=== PATIENT | male | born 1990 | race Caucasian/White ===

== ENCOUNTER 2018-05-14 13:35 | Emergency (ER) | payer BC, SELFPAY ==
[2018-05-14 13:36] VITALS: BP 148/95; PULSE 109; RESP 16; TEMP 36.3; O2SAT 99; BMI 36.1
--- NOTE | 2018-05-14 13:52 | CT_ITS ---
STUDY: CT ABDOMEN AND PELVIS WITHOUT CONTRAST REASON FOR EXAM: Male, 28 years old. Right lower quadrant pain with radiation into the right groin. RADIATION DOSAGE (If Supplied By Facility): CTDIvol = ( 18.41 ) mGy, DLP = ( 1099.22 ) mGycm TECHNIQUE: Transaxial images were obtained from the dome of the diaphragm to the symphysis pubis without oral contrast, and without intravenous contrast. Sagittal and coronal images were reconstructed. Individualized dose optimization techniques were used for this CT. COMPARISON: Comparison is made with prior examination dated July 01, 2014. FINDINGS: The visualized lung bases are unremarkable. The visualized portions of the heart are within normal limits. There is decreased attenuation of the liver consistent with steatosis. Normal gallbladder and extrahepatic biliary system. Normal spleen. Normal pancreas. Normal bilateral adrenal glands. Normal right kidney. Normal left kidney. There is a small hiatal hernia. The stomach is distended with fluid and residual food particles. Normal small intestine. Normal colon. The appendix is visualized and appears normal. Normal abdominal aorta. Normal inferior vena cava. Normal retroperitoneum. Normal urinary bladder. Normal abdominal wall. Normal osseous structures. CT/Abdomen/Pelvis without Cont IMPRESSION: Diffuse fatty infiltration of the liver. Electronically Signed: William Samson MD at 14:54 EST Tel [phone], Service support ,
[2018-05-14] MEDS: Morphine 4 MG/ML Syringe IV (14:08)
[2018-05-14] MEDS: 0.9% Normal Saline 1,000 ML 1000 ML IV (14:08)
[2018-05-14 14:20] LABS: Absolute Lymphocyte Count 2.01 X10^3/ul (0.83-4.51); Absolute Neutrophil Count 5.1 X10^3/uL (2.0-7.7); Basophil# 0.01 X10^3/uL; Basophil% 0.1 % (0-1); Eosinophils% 2.4 % (0-5); Hematocrit 48.4 % (40-54); Hemoglobin 16.7 g/dl (13.0-16.5); Lymphocyte # 2.01 X10^3/ul (4.0); Lymphocyte % 23.6 % (19-41); Mean Corp Hgb Conc 34.5 g/gl (32-36); Mean Corpuscular Hgb 27.6 pg (27.0-32.0); Mean Platelet Vol. 9.7 fl (6.2-12.0); Monocyte# 1.19 X10^3/uL; Neutrophil # 5.08 X10^3/uL (2.7-7.7); Neutrophil % 59.7 % (47-70); POSITIVE COUNT NO; POSITIVE DIFFERENTIAL NO; POSITIVE MORPHOLOGY NO; Platelet Count 285 K/mm3 (150-450); RBC Distribution Width CV 13.6 % (11.6-14.6); RBC Distribution Width SD 39.1 fl (35.1-43.9); Red Blood Count 6.05 M/mm3 (4.6-6.2); White Blood Count 8.5 K/mm3 (4.4-11.0)
[2018-05-14 14:35] LABS: Anion Gap 9 (5-15); BUN 12 mg/dL (7-18); BUN/Creat Ratio 9.4 RATIO (10-20); Chloride 105 mmol/L (98-107); Creatinine, Serum 1.27 mg/dL (0.70-1.30); EST Glomerular Filtration Rate 73 mL/min (>60); Est Glom Filt Rate - Afr Amer 88 mL/min (>60); Estimated Creatinine Clearance 108.22 ml/min; Glucose 118 mg/dL (74-106); Potassium 3.7 mmol/L (3.5-5.1); Sodium Level 138 mmol/L (136-145)
--- NOTE | 2018-05-14 14:53 | ED.VISSUMM ---
- ER Visit Summary Date of Service: 05/14/18 Chief Complaint: Right inguinal pain History of Present Illness: The patient is a 28 M who presents with right inguinal pain that has been getting worse over the past 5 days. Patient states he was lifting something and felt a pop. Patient is concerned over possible inguinal hernia. Patient describes the pain as aching and burning. Patient states the pain is worse with urination. Patient states the pain improves when he lays completely flat and still. Patient denies any nausea or vomiting. Patient states he did have a couple episodes of diarrhea initially but denies any diarrhea at the present time. Patient admits to some mild dysuria but denies any hematuria. Patient denies any fevers or chills Physical Examination: Vital signs are stable. Patient is afebrile. Patient is in no acute distress. Oral mucosa is pink moist. Neck is supple. Trachea is midline. No JVD noted. Heart was regular rate and rhythm. Lungs are clear and equal bilateral. There is good respiratory effort noted. Abdomen is soft. Bowel sounds are normal. There is some mild right lower abdominal tenderness and right inguinal tenderness. There is no hernia palpated. There is no rebound or guarding noted. Obturator sign is negative. There is no testicular tenderness or mass noted. The nerves II through XII are intact. There are no focal motor or sensory deficits noted. The remaining physical exam is within normal limits. Test Results: CBC, metabolic profile, urinalysis were obtained and were all within normal limits. CT scan of the flank shows fatty liver but no appendicitis, no hernia, and no kidney stones. Emergency Department Course and Treatment: Patient was given injection of Toradol here. Patient was instructed to follow-up with his primary care physician in 5-7 days. Patient was given a prescription for Naprosyn. Patient understood and was agreeable with the plan. All questions were answered. Disposition: Discharged home Impression: Abdominal pain This note was generated with [employer] dictation software. It may contain incorrect words, spelling, and punctuation that were not noted in review of the chart prior to signing ED Disposition - Plan for ED Patient: Disposition: Home or Assisted Living Chief Complaint: Abd Pain Diagnosis: Abdominal pain Instructions: ED Abdominal Pain Unkn Cause Prescriptions: Naproxen [Naprosyn] 500 mg PO BID PRN #20 tab Referrals: Care Physician,No Primary [Primary Care Provider] -
[2018-05-14 15:05] LABS: Bacteria 0 SEEN /hpf (None Seen); Mucous, Urine 0 SEEN /hpf (<or=2+); Red Blood Cells-Urine 0 SEEN /hpf (0-5); Squamous Epithelial Cells - UA 0 SEEN /hpf (0-5); White Blood Cells 0 SEEN /hpf (0-5)
[2018-05-14 15:10] LABS: Color, Urine Yellow (Yellow); Glucose, Dipstick Normal (Normal); Ketone-Dipstick Negative (Negative); Leukocyte Esterase-Dipstick Negative /ul (Negative); Nitrite-Dipstick Negative (Negative); Occult Blood-Urine Negative /ul (Negative); Protein-Dipstick Negative (Negative); Urine Bilirubin Dipstick Negative (Negative); Urine Clarity Clear (Clear); Urine Urobilinogen 1 mg/dl (Normal)
[2018-05-14] MEDS: Ketorolac 30 MG/ML Syringe IV (15:54)
[2018-05-14 16:17] VITALS: BP 150/95; PULSE 93; RESP 17; O2SAT 97
--- NOTE | 2018-05-14 16:18 | ED.RN ---
IV DC'ED, CATHETER INTACT, SMALL GAUZE DRESSING PLACED. DISCHARGE INSTRUCTIONS GIVEN TO AND REVIEWED WITH PATIENT, PATIENT DENIES QUESTIONS OR CONCERNS AND VOICES UNDERSTANDING OF DISCHARGE INSTRUCTIONS. PT AMBULATES OUT OF ROOM WITHOUT DIFFICULTY.
== END 2018-05-14 16:18 | disposition home or self-care (01) ==
PROVIDERS: Emergency Provider Emergency Medicine
DX: R10.31 Right lower quadrant pain (principal); R19.7 Diarrhea, unspecified; R30.0 Dysuria
CPT/HCPCS: 74176; 80048; 81001; 85025; 96361; 96374; 96375; 99283; J7030; A4216

== ENCOUNTER 2019-05-14 10:22 | Emergency (ER) | payer BC, SELFPAY ==
[2019-05-14 09:33] VITALS: BMI 35.9
[2019-05-14 10:23] VITALS: BP 135/91; PULSE 98; RESP 17; TEMP 36.6; O2SAT 98; BMI 35.5
--- NOTE | 2019-05-14 10:38 | CT_ITS ---
STUDY: CT BRAIN WITHOUT CONTRAST REASON FOR EXAM: Male, 29 years old. Headaches. RADIATION DOSAGE (If Supplied By Facility): CTDIvol = ( 44.99 ) mGy, DLP = ( 829.85 ) mGycm TECHNIQUE: Transaxial CT imaging of the brain was performed without administration of intravenous contrast material. Individualized dose optimization techniques were used for this CT. COMPARISON: No relevant priors. FINDINGS: Normal soft tissue structures. Normal calvarium. Normal size ventricles and extra-axial spaces for the patient''s age. Normal white matter tracts of the cerebral hemispheres. Normal basal ganglia and thalami. Normal brainstem. Normal cerebellum. There is no intracranial hemorrhage. There are no findings of an acute ischemic infarction. Partial opacification of the maxillary sinuses bilaterally. CT/Brain/Head without Contrast IMPRESSION: Partial opacification of the maxillary sinuses bilaterally. Electronically Signed: William Samson, at 11:39 EST , Service support ,
--- NOTE | 2019-05-14 10:39 | ED.DCSUM_ITS ---
History of Present Illness Chief Complaint: Headache Informant: Patient Onset: Yesterday Current Severity: Mild Narrative: Diffuse headache that began yesterday 5 PM it started as a routine headache he felt that it would go away he has had sense of runny nose slightly and minimal cough some body aches, he woke today with persistence of the headache he went to an urgent care center indicates had negative flu swab and was discharged follow- up with his providers and he came to the emergency department he was not given any pain management at the urgent care. He denies any past history he denies fever cough chest pain abdominal pain numbness weakness paresthesias he has had headaches like this in the past and usually will resolve he has no history of headache disorder brain aneurysm brain tumor no family history Past Medical History - Allergies and Home Meds Allergies/Adverse Reactions: Allergies bee pollen [Bee Pollen] Allergy (Intermediate, Verified 05/14/19 09:34) EDEMA Primary Care Physician: Care Physician,No Primary [Primary Care Provider] - Past Medical History: - - He denies Smoking Status: Former smoker Review of Systems General: Denies: Chills, Fever, Sweats Eyes: Denies: Visual changes - bilaterally, Diplopia ENT: Reports: Rhinorrhea. Denies: Sore throat Cardiovascular: Denies: Chest pain, Palpitations Respiratory: Reports: Cough, - - Minimal cough and rhinorrhea. Denies: Dyspnea, Dyspnea on exertion Gastrointestinal: Denies: Abdominal pain, Nausea, Vomiting, Diarrhea, Melena, Hematochezia Genitourinary: Denies: Dysuria, Hematuria, Frequency Musculoskeletal: Denies: Back pain, Extremity Pain Skin: Denies: Rash, Wounds Neurological: Reports: Headache. Denies: Weakness, Numbness Physical Exam Vital Signs/Narrative: Vital Signs Temp Pulse Resp BP Pulse Ox 05/14/19 10:23 97.8 F 98 17 135/91 H 98 General: Well nourished, Well developed, No Acute Distress Head: Normocephalic, Atraumatic Eyes: Perrl, EOMI ENT: Moist mucous membranes, No rhinorrhea Neck: Supple, Nontender Cardiovascular: Regular rate, Regular rhythm, No murmurs Respiratory: No distress, CTA bilaterally, Chest nontender Abdomen: Soft, Nontender, Nondistended, Normal bowel sounds Back: Nontender, Normal Inspection Extremities: Nontender, No edema Skin: Normal color, No rash Neurological: Alert, Oriented x3, Cranial nerves II-XII grossly intact, Normal Strength, Normal Sensation Psychological: Normal affect, Normal Mood Diagnostic/Tx/Re-eval - Medical Decision Making Patient's physical exam is unremarkable his vital signs are normal his neck is very supple he sitting in a brightly lit room he is moving all 4 extremities his neurologic and general medical exam is unremarkable, his NIH is 0 given his complaints and all of the above he will be started on screening labs IV fluids pain management head CT The patient's screening labs are generally unremarkable to those reports, the head CT shows what appears to be signs of bilateral maxillary sinusitis, otherwise negative CT, reevaluation the patient is feeling much better he understands the findings of the CT the need to treat the apparent sinusitis and have him be reevaluated, we discussed inpatient versus outpatient management he is feeling better he wants to go home he will be started on Augmentin, Flonase Naprosyn for the headache, he was given 1 dose of Rocephin 1 g here and will return for change in symptoms Home stable Final impression Bilateral maxillary sinusitis, headache improved ED Disposition - Plan for ED Patient: Diagnosis: Sinusitis Instructions: HEADACHE, Unspecified, Acute Sinusitis Prescriptions: Amox/Clavulanate Tablet [Augmentin Tablet] 875 mg PO Q12H #20 tab Prescription Printed Fluticasone 0.05% [Flonase Nasal [place]] 1 spray NASAL BID #1 bottle Prescription Printed Naproxen [Naprosyn] 500 mg PO BID PRN #20 tab Prescription Printed Referrals: Care Physician,No Primary [Primary Care Provider] -
[2019-05-14] MEDS: 0.9% Normal Saline 1,000 ML 999 ML IV (10:55)
[2019-05-14] MEDS: DiphenhydrAMINE 50 MG/ML Syringe 25 MG IV (10:56)
[2019-05-14] MEDS: morphine 8 MG/ML Syringe IV (10:57)
[2019-05-14] MEDS: proCHLORPERazine 10 MG/2 ML Vial IV (10:59)
[2019-05-14 11:01] LABS: Absolute Lymphocyte Count 3.74 X10^3/uL (0.83-4.51); Absolute Neutrophil Count 4.5 X10^3/uL (2.0-7.7); Basophil# 0.02 X10^3/uL; Basophil% 0.2 % (0-1); Eosinophil# 0.19 X10^3/uL; Hematocrit 50.8 % (40-54); Hemoglobin 17.3 g/dL (13.0-16.5); Lymphocyte # 3.74 X10^3/ul (4.0); Lymphocyte % 40.1 % (19-41); Mean Corp Hgb Conc 34.1 g/dL (32-36); Mean Corpuscular Hgb 27.4 pg (27.0-32.0); Mean Corpuscular Volume 80.5 fL (80-94); Mean Platelet Vol. 9.8 fl (6.2-12.0); Monocyte# 0.81 X10^3/uL; Monocyte% 8.7 % (0-10); NRBC Flagged by Analyzer 0 % (0-5); Neutrophil # 4.54 X10^3/uL (2.7-7.7); Neutrophil % 48.7 % (47-70); Platelet Count 319 K/mm3 (150-450); RBC Distribution Width CV 13.2 % (11.6-14.6); RBC Distribution Width SD 38.5 fl (35.1-43.9); Red Blood Count 6.31 M/mm3 (4.6-6.2); White Blood Count 9.3 K/mm3 (4.4-11.0)
[2019-05-14 11:14] LABS: Anion Gap 10 (5-15); BUN 13 mg/dL (7-18); BUN/Creat Ratio 11.4 RATIO (10-20); Calcium,Total 8.9 mg/dL (8.5-10.1); Chloride 108 mmol/L (98-107); Creatinine, Serum 1.14 mg/dL (0.70-1.30); EST Glomerular Filtration Rate 82 mL/min (>60); Est Glom Filt Rate - Afr Amer 99 mL/min (>60); Glucose 97 mg/dL (74-106); Potassium 4.1 mmol/L (3.5-5.1); Sodium Level 139 mmol/L (136-145)
[2019-05-14] MEDS: Ceftriaxone 1 GM/50 ML BAG IV (12:15)
[2019-05-14 12:57] VITALS: BP 131/106; PULSE 81; RESP 16; O2SAT 99
--- NOTE | 2019-05-14 12:58 | ED.RN ---
REVIEWED D/C INSTRUCTIONS, FOLLOW UP CARE, PRESCRIPTIONS, AND S/S THAT WOULD WARRANT A RETURN TO THE ED WITH PT. PT VERBALIZED AN UNDERSTANDING AND DENIES FURTHER QUESTIONS FOR THIS RN. PT SKIN P/W/D, RESP EVEN AND UNLABORED, PT A&O X 3, NO DISTRESS NOTED. PT AMBULATED OUT OF ED, GAIT STEADY.
== END 2019-05-14 13:04 | disposition home or self-care (01) ==
LOC: ED 11:21
PROVIDERS: Emergency Provider Emergency Medicine
DX: J32.9 Chronic sinusitis, unspecified (principal); Z87.891 Personal history of nicotine dependence
CPT/HCPCS: 70450; 80048; 85025; 96361; 96365; 96375; 99282; J7030; A4216

== ENCOUNTER 2019-12-03 21:13 | Emergency (ER) | payer BC, SELFPAY ==
[2019-12-03 21:13] VITALS: BMI 35.5
[2019-12-03 21:14] VITALS: BP 147/85; PULSE 102; RESP 18; TEMP 36.2; O2SAT 97; BMI 36.8
--- NOTE | 2019-12-03 21:22 | CT_ITS ---
STUDY: CT ABDOMEN AND PELVIS WITHOUT CONTRAST REASON FOR EXAM: Male, 29 years old. GROIN PAIN SINCE LAST SATURDAY, SHIFTS SIDES, right worse than left. Hx of asthma and kidney stones RADIATION DOSAGE (If Supplied By Facility): CTDIvol = ( 20.27 ) mGy, DLP = ( 1190.12 ) mGycm TECHNIQUE: Transaxial images were obtained from the dome of the diaphragm to the symphysis pubis without oral contrast, and without intravenous contrast. Sagittal and coronal images were reconstructed. Individualized dose optimization techniques were used for this CT. COMPARISON: 05/14/2018 FINDINGS: The visualized lung bases are unremarkable. The visualized portions of the heart are within normal limits. There is decreased attenuation of the liver consistent with steatosis. Hepatomegaly. Normal gallbladder and extrahepatic biliary system. Normal spleen. Normal pancreas. Normal bilateral adrenal glands. Normal right kidney. Normal left kidney. Normal visualized stomach. Normal small intestine. Normal colon. The appendix is visualized and appears normal. Normal abdominal aorta. Normal inferior vena cava. Normal retroperitoneum. Normal urinary bladder. Normal abdominal wall. Normal osseous structures. CT/Abdomen/Pelvis without Cont IMPRESSION: No evidence of appendicitis, acute intestinal pathology, or acute obstructive uropathy. Electronically Signed: Derick Murphy MD at 22:05 EDT Tel , Service support ,
[2019-12-03] MEDS: 0.9% Normal Saline 1,000 ML 250 ML IV (21:31)
[2019-12-03] MEDS: Ondansetron 4 MG/2 ML Vial IV (21:32)
[2019-12-03] MEDS: Ketorolac 30 MG/ML Syringe IV (21:33)
[2019-12-03 21:37] LABS: Bacteria 0 SEEN /hpf (None Seen); Mucous, Urine 0 SEEN /hpf (<or=2+); Red Blood Cells-Urine 0 SEEN /hpf (0-5); Squamous Epithelial Cells - UA 0 SEEN /hpf (0-5)
[2019-12-03 21:38] LABS: Absolute Lymphocyte Count 4.39 X10^3/uL (0.83-4.51); Absolute Neutrophil Count 4.6 X10^3/uL (2.0-7.7); Basophil# 0.06 X10^3/uL; Basophil% 0.6 % (0-1); Eosinophils% 2.9 % (0-5); Hematocrit 47.6 % (40-54); Lymphocyte # 4.39 X10^3/ul (4.0); Lymphocyte % 42.8 % (19-41); Mean Corp Hgb Conc 33.6 g/dL (32-36); Mean Corpuscular Hgb 27.4 pg (27.0-32.0); Mean Corpuscular Volume 81.4 fL (80-94); Mean Platelet Vol. 10.1 fl (6.2-12.0); Monocyte# 0.92 X10^3/uL; NRBC Flagged by Analyzer 0 % (0-5); Neutrophil # 4.55 X10^3/uL (2.7-7.7); Neutrophil % 44.4 % (47-70); Platelet Count 305 K/mm3 (150-450); RBC Distribution Width CV 13.3 % (11.6-14.6); RBC Distribution Width SD 38.8 fl (35.1-43.9); Red Blood Count 5.85 M/mm3 (4.6-6.2); White Blood Count 10.3 K/mm3 (4.4-11.0)
[2019-12-03 21:40] LABS: Color, Urine Yellow (Yellow); Glucose, Dipstick Normal (Normal); Ketone-Dipstick Negative (Negative); Leukocyte Esterase-Dipstick Negative /ul (Negative); Nitrite-Dipstick Negative (Negative); Occult Blood-Urine Negative /ul (Negative); Protein-Dipstick Negative (Negative); Specific Gravity, Urine 1.015 (1.002-1.030); Urine Bilirubin Dipstick Negative (Negative); Urine Clarity Clear (Clear); Urine Urobilinogen Normal (Normal)
--- NOTE | 2019-12-03 21:41 | ED.VIS.GEN ---
History of Present Illness Chief Complaint: Male Pain/Injury Informant: Patient Onset: Days Context: Gradual Onset Timing: Intermittent Current Severity: Moderate Maximum Severity: Severe Narrative: The patient is a 29-year-old male with no significant medical history that presents to the emergency department with intermittent right lower quadrant pain. The patient states that started on Saturday. He had a sharp pain in his right mid abdomen that seem to radiate to his testicles. He states the pain will come and go. He states at times, it feels like it is difficult to urinate. He denies any fevers or chills. He has been nauseated without vomiting. He states mostly, the pain will radiate to his testicles. He is been moving his bowels without issue. He has no history of prior abdominal surgery. Prior similar symptoms: No Recent Illness/Hospitalization: No Past Medical History - Allergies and Home Meds Allergies/Adverse Reactions: Allergies bee pollen [Bee Pollen] Allergy (Intermediate, Verified 12/03/19 21:14) EDEMA Primary Care Physician: Care Physician,No Primary [Primary Care Provider] - Prior records reviewed: Yes Past Medical History: None Surgical History: no surgical history Smoking Status: Former smoker Review of Systems General: Denies: Chills, Fever, Sweats Eyes: Denies: Visual changes - bilaterally, Diplopia ENT: Denies: Rhinorrhea, Sore throat Cardiovascular: Denies: Chest pain, Palpitations Respiratory: Denies: Dyspnea, Cough, Dyspnea on exertion Gastrointestinal: Reports: Abdominal pain, Nausea. Denies: Vomiting, Diarrhea, Melena, Hematochezia Genitourinary: Denies: Dysuria, Hematuria, Frequency Musculoskeletal: Denies: Back pain, Extremity Pain Skin: Denies: Rash, Wounds Neurological: Denies: Headache, Weakness, Numbness Physical Exam Vital Signs/Narrative: Vital Signs Temp Pulse Resp BP Pulse Ox 12/03/19 21:14 97.1 F L 102 H 18 147/85 H 97 Inital Vital Signs reviewed: Yes General: Well nourished, Well developed, No Acute Distress Head: Normocephalic, Atraumatic Eyes: Perrl, EOMI ENT: Moist mucous membranes, No rhinorrhea Neck: Supple, Nontender Cardiovascular: Regular rate, Regular rhythm, No murmurs Respiratory: No distress, CTA bilaterally, Chest nontender Abdomen: Soft, Nontender, Nondistended, Normal bowel sounds : - - No palpable hernia. No testicular tenderness. Cremasteric preserved. Back: Nontender, Normal Inspection Extremities: Nontender, No edema Skin: Normal color, No rash Neurological: Alert, Oriented x3, Cranial nerves II-XII grossly intact, Normal Strength, Normal Sensation Psychological: Normal affect, Normal Mood Diagnostic/Tx/Re-eval Clinical Impression(s) from Imaging Studies Abdomen/Pelvis CT 12/03/19 21:22 IMPRESSION: No evidence of appendicitis, acute intestinal pathology, or acute obstructive uropathy. Electronically Signed: Derick Murphy MD at 22:05 EDT Tel , Service support , Abnormal Lab Results 12/03/19 12/03/19 12/03/19 21:35 21:35 21:35 WBC 10.3 RBC 5.85 Hgb 16.0 Hct 47.6 MCV 81.4 MCH 27.4 MCHC 33.6 RDW Std Deviation 38.8 RDW Coeff of Rasha[place] 13.3 Plt Count 305 MPV 10.1 Immature Gran % (Auto) 0.300 Neut % (Auto) 44.4 L Lymph % (Auto) 42.8 H [place] % (Auto) 9.0 Eos % (Auto) 2.9 Baso % (Auto) 0.6 Absolute Neuts (auto) 4.6 Absolute Lymphs (auto) 4.39 Nucleated RBC % 0 Sodium 141 Potassium 3.8 Chloride 111 H Carbon Dioxide 25.0 Anion Gap 5 BUN 14 Creatinine 1.07 Estim Creat Clear Calc 127.32 Est GFR (MDRD) Af Amer 106 Est GFR (MDRD) Non-Af 88 BUN/Creatinine Ratio 13.1 Glucose 111 H Calcium 8.8 Urine Color Yellow Urine Clarity Clear Urine pH 7.0 Ur Specific [place] 1.015 Urine Protein Negative Urine Glucose (UA) Normal Urine Ketones Negative Urine Occult Blood Negative Urine Nitrite Negative Urine Bilirubin Negative Urine Urobilinogen Normal Ur Leukocyte Esterase Negative Urine RBC 0 SEEN Urine WBC 0-5 SEEN Ur Squamous Epith Cells 0 SEEN Urine Bacteria 0 SEEN Urine Mucus 0 SEEN - Medical Decision Making The patient has an intermittent pain in his right lower quadrant radiates to his testicles. He states it comes in waves. He does have history of kidney stone, but states this feels different. He declined analgesics. He was given Toradol and Zofran with some improvement. Screening labs were obtained. These were unremarkable. Urine shows no evidence of infection. His testicular exam was benign. Patient underwent noncontrast CT which shows no evidence of kidney stone. His appendix is visualized and is normal. There is no hernia. With his intermittent pain, ultrasound was obtained. There is no evidence of testicular torsion. He does have some small hydroceles. At this point, I do feel that he is safe for discharge with outpatient follow-up. He is comfortable with this plan of care. Impression 1. Testicular pain 2. Bilateral hydrocele ED Disposition - Plan for ED Patient: Instructions: ED Hydrocele Non-Communicating Type Prescriptions: Hydrocodone Bitart/Apap 5-325 [[place] 5MG-325MG] 1 tab PO Q6H PRN PRN 3 Days #10 tab PRN Reason: Pain Prescription Printed Ondansetron [Zofran Odt] 4 mg PO Q8H PRN PRN #10 tab PRN Reason: Nausea Prescription Printed Referrals: Feliz Fabian MD [STAFF PHYSICIAN] -
[2019-12-03 21:50] LABS: White Blood Cells 0-5 SEEN /hpf (0-5)
[2019-12-03 21:53] LABS: Anion Gap 5 (5-15); BUN 14 mg/dL (7-18); BUN/Creat Ratio 13.1 RATIO (10-20); Calcium,Total 8.8 mg/dL (8.5-10.1); Chloride 111 mmol/L (98-107); Creatinine, Serum 1.07 mg/dL (0.70-1.30); EST Glomerular Filtration Rate 88 mL/min (>60); Est Glom Filt Rate - Afr Amer 106 mL/min (>60); Estimated Creatinine Clearance 127.32 ml/min; Glucose 111 mg/dL (74-106); Potassium 3.8 mmol/L (3.5-5.1); Sodium Level 141 mmol/L (136-145)
--- NOTE | 2019-12-03 22:15 | US_ITS ---
STUDY: SCROTUM ULTRASOUND REASON FOR EXAM: Male, 29 years old. RT TESTICLE PAIN RADIATES UPWARD TECHNIQUE: Ultrasound evaluation of the scrotum was performed with color Doppler and static hyde-scale imaging. COMPARISON: 07/01/2014 FINDINGS: RIGHT TESTICLE INTRATESTICULAR: There is a normal size of the right testicle. The right testicle measures 5.2 x 3.3 x 2.6 cm. There is a homogenous echotexture. There is normal arterial and normal venous vascularity. There is no demonstrated right testicular mass or cyst. EXTRATESTICULAR: The epididymis is normal in size. The epididymis head measures 1.9 x 1.0 x 1.0 cm. There is normal vascularity of the epididymis. There is no demonstrated epididymal cystic structure. There is a small hydrocele. There is no demonstrated varicocele. There is no demonstrated extratesticular mass or cyst. LEFT TESTICLE INTRATESTICULAR: There is a normal size of the left testicle. The left testicle measures 5.1 x 3.3 x 2.1 cm. There is a homogenous echotexture. There is normal arterial and normal venous vascularity. There is no demonstrated left testicular mass or cyst. EXTRATESTICULAR: The epididymis is normal in size. The epididymis head measures 1.9 x 0.9 x 0.8 cm. There is normal vascularity of the epididymis. There is no demonstrated epididymal cystic structure. There is a small hydrocele. There is no demonstrated varicocele. There is no demonstrated extratesticular mass or cyst. US/Testicular with Arterial Flow IMPRESSION: Small bilateral hydroceles. No evidence of intratesticular pathology or epididymitis. Electronically Signed: Derick Murphy MD at 23:10 EDT Tel , Service support ,
[2019-12-03] MEDS: Acetaminophen 500 MG Tablet 1000 MG PO (23:22)
[2019-12-03 23:23] VITALS: BP 126/78; PULSE 76; RESP 16; O2SAT 97
== END 2019-12-03 23:27 | disposition home or self-care (01) ==
LOC: ED 21:54
PROVIDERS: Emergency Provider Emergency Medicine
DX: N43.3 Hydrocele, unspecified (principal); N50.812 Left testicular pain; N50.811 Right testicular pain; Z87.442 Personal history of urinary calculi; Z87.891 Personal history of nicotine dependence
CPT/HCPCS: 74176; 76870; 80048; 81001; 85025; 93976; 96361; 96374; 96375; 99284; J7030; A4216; J2405

== ENCOUNTER 2020-02-17 08:41 | Emergency (ER) | payer BC, SELFPAY ==
[2020-02-17 08:42] VITALS: BP 124/83; PULSE 89; RESP 16; TEMP 36.6; O2SAT 99; BMI 36.5
--- NOTE | 2020-02-17 08:48 | RAD_ITS ---
STUDY: X-RAY - LEFT WRIST REASON FOR EXAM: Male, 30 years old. FELT A POP IN WRIST AFTER WORKING OUT. NUMB FINGERS SINCE TECHNIQUE: 3 view(s) of the wrist were obtained. COMPARISON: None. FINDINGS: Normal visualized distal radius and ulna. Normal radiocarpal articulation. Normal distal radioulnar articulation. Normal carpal bones. Normal carpal articulations. Normal carpometacarpal articulation of the thumb. Normal second through fifth carpometacarpal articulations. Normal visualized metacarpal bones. The soft tissue structures are unremarkable. RAD/Wrist min 3 Views IMPRESSION: Normal x-ray examination of the wrist. Electronically Signed: William Samson, at 9:03 EDT , Service support ,
--- NOTE | 2020-02-17 08:48 | ED.VIS.GEN ---
History of Present Illness Chief Complaint: Upper Extremity Injury Informant: Patient Onset: Days Context: Gradual Onset Timing: Intermittent Current Severity: Moderate Maximum Severity: Moderate Narrative: The patient is a [id number] male that presents to the emergency department with intermittent numbness and tingling in his left hand. The patient states that about 7 to 10 days ago, he was lifting weights. He states that he picked up a dumbbell and felt something pop in his left wrist. Since then, he is noticed some tingling and intermittent numbness in his first 3 digits on the left hand. He states that sometimes, it feels like it is in his shoulder. He denies any clumsiness of the hand. He denies any headache or neck pain. He denies other injury. He states he is never really had anything like this before. Prior similar symptoms: No Recent Illness/Hospitalization: No Past Medical History - Allergies and Home Meds Allergies/Adverse Reactions: Allergies bee pollen [Bee Pollen] Allergy (Intermediate, Verified 02/17/20 08:42) EDEMA Primary Care Physician: Care Physician,No Primary [Primary Care Provider] - Prior records reviewed: Yes Past Medical History: None Surgical History: no surgical history Smoking Status: Former smoker Review of Systems General: Denies: Chills, Fever, Sweats Eyes: Denies: Visual changes - bilaterally, Diplopia ENT: Denies: Rhinorrhea, Sore throat Cardiovascular: Denies: Chest pain, Palpitations Respiratory: Denies: Dyspnea, Cough, Dyspnea on exertion Gastrointestinal: Denies: Abdominal pain, Nausea, Vomiting, Diarrhea, Melena, Hematochezia Genitourinary: Denies: Dysuria, Hematuria, Frequency Musculoskeletal: Denies: Back pain, Extremity Pain Skin: Denies: Rash, Wounds Neurological: Denies: Headache, Weakness, Numbness Physical Exam Vital Signs/Narrative: Vital Signs Temp Pulse Resp BP Pulse Ox 02/17/20 08:42 97.9 F 89 16 124/83 H 99 Inital Vital Signs reviewed: Yes General: Well nourished, Well developed, No Acute Distress Head: Normocephalic, Atraumatic Eyes: Perrl, EOMI ENT: Moist mucous membranes, No rhinorrhea Neck: Supple, Nontender Cardiovascular: Regular rate, Regular rhythm, No murmurs Respiratory: No distress, CTA bilaterally, Chest nontender Abdomen: Soft, Nontender, Nondistended, Normal bowel sounds Back: Nontender, Normal Inspection Extremities: No edema, Tenderness - Mild tenderness over the left wrist. 2+ radial ulnar pulses. Minesh's and Tinel's do re-create tingling in the first 3 digits. No weakness of the intrinsics. Skin: Normal color, No rash Neurological: Alert, Oriented x3, Cranial nerves II-XII grossly intact, Normal Strength, Normal Sensation Psychological: Normal affect, Normal Mood Diagnostic/Tx/Re-eval Clinical Impression(s) from Imaging Studies Wrist X-Ray 02/17/20 08:48 IMPRESSION: Normal x-ray examination of the wrist. Electronically Signed: William Samson, at 9:03 EDT , Service support , - Medical Decision Making The patient has normal vasculature of his upper extremity. His cap refill is normal. The skin is intact. I did obtain plain films as he reported a pop. These were negative for acute fracture. Clinically, I do feel his symptoms are likely consistent with carpal tunnel. He will be placed in a Velcro wrist splint along with anti-inflammatories. He will be given outpatient orthopedic follow-up. He is comfortable with this plan of care. Impression 1. Carpal tunnel left wrist ED Disposition - Plan for ED Patient: Instructions: ED Carpal Tunnel Prescriptions: Prednisone [Deltasone] 40 mg PO DAILY #10 tab Prescription Printed Naproxen [Naprosyn] 500 mg PO BID PRN #20 tab Prescription Printed Referrals: Gilberto Madden DO [STAFF PHYSICIAN] -
== END 2020-02-17 09:20 | disposition home or self-care (01) ==
LOC: ED 08:57
PROVIDERS: Emergency Provider Emergency Medicine
DX: G56.02 Carpal tunnel syndrome, left upper limb (principal); Z87.891 Personal history of nicotine dependence
CPT/HCPCS: 73110; 99283

== ENCOUNTER 2020-05-02 19:54 | Emergency (ER) | payer BC, SELFPAY ==
[2020-05-02 19:55] VITALS: BP 155/97; PULSE 108; RESP 16; TEMP 35.7; O2SAT 99; BMI 37.0
--- NOTE | 2020-05-02 20:14 | CT_ITS ---
STUDY: CT ABDOMEN AND PELVIS WITH CONTRAST REASON FOR EXAM: Male, 30 years old. RLQ PAIN X 4 DAYS, CONSTIPATION BUT HAS HAD 3 BM TODAY RADIATION DOSAGE (If Supplied By Facility): CTDIvol = ( 17.05 ) mGy, DLP = ( 1419.80 ) mGycm TECHNIQUE: Transaxial images were obtained from the dome of the diaphragm to the symphysis pubis without oral contrast. IV 100mL Isovue-300 was administered. Sagittal and coronal images were reconstructed. Individualized dose optimization techniques were used for this CT. COMPARISON: None. FINDINGS: The visualized lung bases are unremarkable. The visualized portions of the heart are within normal limits. There is mildly prominent fatty infiltrated liver without mass or bile duct dilatation. Contracted thick-walled gallbladder without calcified stones possibly physiologic. If concern for gallbladder disease ultrasound recommended.. Spleen is mildly enlarged but homogeneous attenuation Normal pancreas. Normal bilateral adrenal glands. Normal right kidney. Normal left kidney. Normal visualized stomach. Normal small intestine. Normal colon. The appendix is visualized and appears normal. Normal abdominal aorta. Normal inferior vena cava. Normal retroperitoneum. Incompletely distended thick-walled bladder likely of no significance. Normal abdominal wall. Normal osseous structures. CT/Abdomen/Pelvis W IV Cont ONLY IMPRESSION: Mild hepatosplenomegaly and fatty infiltrated liver. Contracted thick-walled gallbladder without calcified stones likely physiologic however if concern for gallbladder disease ultrasound recommended. No evidence for hydronephrosis or ureteral calculus. No evidence for acute appendicitis Electronically Signed: Kaiser Rojo MD at 21:16 EST , Service support ,
--- NOTE | 2020-05-02 20:15 | ED.DCSUM_ITS ---
History of Present Illness Chief Complaint: Abd Pain Informant: Patient Onset: Days - 4 days Context: Gradual Onset Timing: Waxes and wanes Current Severity: Moderate Maximum Severity: Moderate Narrative: Patient presents with a 4-day history of right lower quadrant abdominal pain. Pain is been waxing and waning but states it is there more than it is not. He does note slight worsened pain after eating. He does report having normal appetite. He denies fever or chills. He states he feels constipated but has been having regular bowel movements. He denies urinary symptoms. Past Medical History - Allergies and Home Meds Allergies/Adverse Reactions: Allergies bee pollen [Bee Pollen] Allergy (Intermediate, Verified 05/02/20 19:57) EDEMA Primary Care Physician: Care Physician,No Primary [Primary Care Provider] - Past Medical History: None Surgical History: no surgical history, tonsillectomy Smoking Status: Former smoker Review of Systems General: Denies: Chills, Fever Eyes: Denies: Visual changes - bilaterally ENT: Denies: Bilateral ear pain Cardiovascular: Denies: Chest pain Respiratory: Denies: Dyspnea, Cough Gastrointestinal: Reports: Abdominal pain. Denies: Nausea, Vomiting, Diarrhea Genitourinary: Denies: Dysuria Musculoskeletal: Denies: Extremity Pain Skin: Denies: Rash Neurological: Denies: Headache Hematologic: Denies: Easy bruising, Easy bleeding Allergy: Denies: Uticaria Physical Exam Vital Signs/Narrative: Vital Signs Temp Pulse Resp BP Pulse Ox 05/02/20 19:55 96.3 F L 108 H 16 155/97 H 99 Inital Vital Signs reviewed: Yes General: Well nourished, Well developed Head: Normocephalic ENT: Moist mucous membranes Neck: Supple Cardiovascular: Regular rate, Regular rhythm Respiratory: No distress, CTA bilaterally Abdomen: Soft, Tender - Moderate tenderness in the right lower quadrant., Hypoactive bowel sounds. Negative for: Guarding, Rebound tenderness Extremities: Nontender Skin: Normal color Neurological: Alert, Oriented x3 Psychological: Normal affect Diagnostic/Tx/Re-eval Impressions Abdomen/Pelvis CT 05/02/20 20:14 IMPRESSION: Mild hepatosplenomegaly and fatty infiltrated liver. Contracted thick-walled gallbladder without calcified stones likely physiologic however if concern for gallbladder disease ultrasound recommended. No evidence for hydronephrosis or ureteral calculus. No evidence for acute appendicitis Electronically Signed: Kaiser Rojo MD at 21:16 EST , Service support , 05/02/20 20:14 Abdomen/Pelvis W IV Cont ONLY [CT] Stat Laboratory Results 05/02/20 05/02/20 05/02/20 20:25 20:30 20:30 WBC 10.1 RBC 5.95 Hgb 16.4 Hct 49.4 MCV 83.0 MCH 27.6 MCHC 33.2 RDW Std Deviation 41.1 RDW Coeff of Rashaun 13.6 Plt Count 334 MPV 9.9 Immature Gran % (Auto) 0.200 Neut % (Auto) 50.5 Lymph % (Auto) 36.3 Yell % (Auto) 7.9 Eos % (Auto) 4.8 Baso % (Auto) 0.3 Absolute Neuts (auto) 5.1 Absolute Lymphs (auto) 3.66 Nucleated RBC % 0 Sodium 142 Potassium 3.9 Chloride 107 Carbon Dioxide 29.0 Anion Gap 6 BUN 15 Creatinine 1.07 Estim Creat Clear Calc 126.19 Est GFR (MDRD) Af Amer 106 Est GFR (MDRD) Non-Af 87 BUN/Creatinine Ratio 14.0 Glucose 100 Calcium 9.2 Urine Color Yellow Urine Clarity Clear Urine pH 7.0 Ur Specific [place] 1.010 Urine Protein Negative Urine Glucose (UA) Normal Urine Ketones Negative Urine Occult Blood Negative Urine Nitrite Negative Urine Bilirubin Negative Urine Urobilinogen Normal Ur Leukocyte Esterase Negative Urine RBC 0 SEEN Urine WBC 0 SEEN Ur Squamous Epith Cells 0 SEEN Urine Bacteria 0 SEEN Urine Mucus 0 SEEN - Medical Decision Making Patient was given IV fluids. Blood work is unremarkable. Urinalysis clean. CT with IV contrast reveals no evidence of appendicitis. Appendix is well visualized and appears normal. Patient does state seem to have focal stool in the right lower quadrant where he is having pain. No evidence of bowel obstruction and remainder of bowel looks clean. Test results are discussed with him. A dose of Toradol has been ordered. Patient will get a prescription for MiraLAX and given return instructions. ED Disposition - Plan for ED Patient: Disposition: Home or Assisted Living Diagnosis: Abdominal pain Instructions: ED Unknown Causes of Abdominal Pain Male Prescriptions: Polyethylene Glycol 3350 [Miralax] 17 gm PO DAILY #20 packet Transmission Status: Pending to [facility] Referrals: Kierra Frost, [STAFF PHYSICIAN] - As Needed
[2020-05-02] MEDS: 0.9% Normal Saline 1,000 ML 150 ML IV (20:30)
[2020-05-02 20:39] LABS: Bacteria 0 SEEN /hpf (None Seen); Mucous, Urine 0 SEEN /hpf (<or=2+); Red Blood Cells-Urine 0 SEEN /hpf (0-5); Squamous Epithelial Cells - UA 0 SEEN /hpf (0-5); White Blood Cells 0 SEEN /hpf (0-5)
[2020-05-02 20:43] LABS: Absolute Lymphocyte Count 3.66 X10^3/uL (0.83-4.51); Absolute Neutrophil Count 5.1 X10^3/uL (2.0-7.7); Basophil# 0.03 X10^3/uL; Basophil% 0.3 % (0-1); Eosinophil# 0.48 X10^3/uL; Eosinophils% 4.8 % (0-5); Hematocrit 49.4 % (40-54); Hemoglobin 16.4 g/dL (13.0-16.5); Lymphocyte # 3.66 X10^3/ul (4.0); Lymphocyte % 36.3 % (19-41); Mean Corp Hgb Conc 33.2 g/dL (32-36); Mean Corpuscular Hgb 27.6 pg (27.0-32.0); Mean Platelet Vol. 9.9 fl (6.2-12.0); Monocyte% 7.9 % (0-10); NRBC Flagged by Analyzer 0 % (0-5); Neutrophil # 5.08 X10^3/uL (2.7-7.7); Neutrophil % 50.5 % (47-70); Platelet Count 334 K/mm3 (150-450); RBC Distribution Width CV 13.6 % (11.6-14.6); RBC Distribution Width SD 41.1 fl (35.1-43.9); Red Blood Count 5.95 M/mm3 (4.6-6.2); White Blood Count 10.1 K/mm3 (4.4-11.0)
[2020-05-02 20:46] LABS: Color, Urine Yellow (Yellow); Glucose, Dipstick Normal (Normal); Ketone-Dipstick Negative (Negative); Leukocyte Esterase-Dipstick Negative /ul (Negative); Nitrite-Dipstick Negative (Negative); Occult Blood-Urine Negative /ul (Negative); Protein-Dipstick Negative (Negative); Urine Bilirubin Dipstick Negative (Negative); Urine Clarity Clear (Clear); Urine Urobilinogen Normal (Normal)
[2020-05-02 20:59] LABS: Anion Gap 6 (5-15); BUN 15 mg/dL (7-18); Calcium,Total 9.2 mg/dL (8.5-10.1); Chloride 107 mmol/L (98-107); Creatinine, Serum 1.07 mg/dL (0.70-1.30); EST Glomerular Filtration Rate 87 mL/min (>60); Est Glom Filt Rate - Afr Amer 106 mL/min (>60); Estimated Creatinine Clearance 126.19 ml/min; Glucose 100 mg/dL (74-106); Potassium 3.9 mmol/L (3.5-5.1); Sodium Level 142 mmol/L (136-145)
[2020-05-02] MEDS: Ketorolac 30 MG/ML Syringe IV (21:41)
== END 2020-05-02 22:15 | disposition home or self-care (01) ==
PROVIDERS: Emergency Provider Emergency Medicine
DX: R10.31 Right lower quadrant pain (principal); Z87.891 Personal history of nicotine dependence
CPT/HCPCS: 74177; 80048; 81001; 85025; 96361; 96374; 99283; J7030; Q9967; A4216

== ENCOUNTER → 2020-06-15 14:44 | Outpatient (CLI) | payer BC, SELFPAY ==
--- NOTE | 2020-06-15 14:47 | RAD_ITS ---
STUDY: X-RAY - ACUTE ABDOMINAL SERIES REASON FOR EXAM: Male, 30 years old. generalized abd pain for about a month TECHNIQUE: Single view of the chest. Supine, and erect view(s) of the abdomen were obtained. COMPARISON: None. FINDINGS: The lungs are clear and expanded. Normal size heart. Normal mediastinum and norma. Normal visualized pulmonary arteries. Normal visualized aortic arch and descending thoracic aorta. There is a non-specific bowel gas pattern. The soft tissue structures of the abdomen and pelvis are unremarkable. Normal visualized osseous structures. RAD/Acute Abdomen Inc Chest IMPRESSION: Normal x-ray examination of the chest, abdomen, and pelvis. Electronically Signed: Javi Branch MD at 15:29 EST Tel , Service support ,
== END ==
LOC: MTRAD 14:46
PROVIDERS: PCP Internal Medicine; Referring Provider Internal Medicine; Visit Provider Internal Medicine
DX: R10.84 Generalized abdominal pain (principal)
CPT/HCPCS: 74022

== ENCOUNTER 2020-06-20 09:29 | Emergency (ER) | payer BC, SELFPAY ==
[2020-06-20 09:29] VITALS: BP 136/96; PULSE 99; RESP 16; TEMP 35.9; O2SAT 97; BMI 37.7
--- NOTE | 2020-06-20 09:39 | ED.VIS.GI ---
History of Present Illness Chief Complaint: Abd Pain Narrative: Patient presenting for evaluation secondary to abdominal pain. Patient states that over the course of about the last month he has been dealing with left lower quadrant abdominal pain. Patient is supposed to see a general surgeon to be evaluated for possible colonoscopy tomorrow, but states that since yesterday he has had an onset of more severe left upper quadrant pain. Patient states that the pain is worse with taking a deep breath and palpation. He denies any other associated symptoms such as nausea vomiting diarrhea dysuria hematuria change in color or character of his stools or any fevers. Patient denies any history of abdominal surgeries. He did have a history of colon polyps in the past. Review of systems otherwise negative. Past Medical History - Allergies and Home Meds Allergies/Adverse Reactions: Allergies bee pollen [Bee Pollen] Allergy (Intermediate, Verified 06/20/20 09:29) EDEMA Primary Care Physician: Kierra Frost DO [STAFF PHYSICIAN] - Past Medical History: - - Noncontributory Surgical History: no surgical history, tonsillectomy Lives: Spouse/ Significant Other Smoking Status: Former smoker Alcohol: None Drugs: None Review of Systems All systems negative except as indicated General: Denies: Chills, Fever, Sweats Eyes: Denies: Visual changes - bilaterally, Diplopia ENT: Denies: Rhinorrhea, Sore throat Cardiovascular: Denies: Chest pain, Palpitations Respiratory: Denies: Dyspnea, Cough, Dyspnea on exertion Gastrointestinal: Reports: Abdominal pain Genitourinary: Denies: Dysuria, Hematuria, Frequency Musculoskeletal: Denies: Back pain, Extremity Pain Skin: Denies: Rash, Wounds Neurological: Denies: Headache, Weakness, Numbness Physical Exam Vital Signs/Narrative: Vital Signs Temp Pulse Resp BP Pulse Ox 06/20/20 09:29 96.6 F L 99 16 136/96 H 97 Inital Vital Signs reviewed: Yes General: Well nourished, Well developed, No Acute Distress Head: Normocephalic, Atraumatic Eyes: Perrl, EOMI ENT: Moist mucous membranes, No rhinorrhea Neck: Supple, Nontender Cardiovascular: Regular rate, Regular rhythm, No murmurs Respiratory: No distress, CTA bilaterally, Chest nontender Abdomen: Soft, Nondistended, Normal bowel sounds, Tender - LUQ. Negative for: Guarding, Rebound tenderness Back: Nontender, Normal Inspection Extremities: Nontender, No edema Skin: Normal color, No rash Neurological: Alert, Oriented x3, Cranial nerves II-XII grossly intact, Normal Strength, Normal Sensation Psychological: Normal affect, Normal Mood Diagnostic/Tx/Re-eval Clinical Impression(s) from Imaging Studies Abdomen/Pelvis CT 06/20/20 10:35 IMPRESSION: Diffuse fatty infiltration of the liver. Electronically Signed: William Samson, at 11:06 EST , Service support , Laboratory Data 06/20/20 06/20/20 09:45 09:45 WBC 7.0 RBC 6.20 Hgb 16.3 Hct 50.3 MCV 81.1 MCH 26.3 L MCHC 32.4 RDW Std Deviation 39.8 RDW Coeff of Rashaun 13.5 Plt Count 294 MPV 10.1 Immature Gran % (Auto) 0.100 Neut % (Auto) 41.1 L Lymph % (Auto) 42.9 H Phillips % (Auto) 8.4 Eos % (Auto) 7.1 H Baso % (Auto) 0.4 Absolute Neuts (auto) 2.9 Absolute Lymphs (auto) 3.01 Nucleated RBC % 0 Sodium 141 Potassium 3.9 Chloride 111 H Carbon Dioxide 25.0 Anion Gap 5 BUN 16 Creatinine 1.04 Estim Creat Clear Calc 129.83 Est GFR (MDRD) Af Amer 109 Est GFR (MDRD) Non-Af 90 BUN/Creatinine Ratio 15.4 Glucose 96 Calcium 9.2 Total Bilirubin 1.00 AST 28 ALT 54 Alkaline Phosphatase 73 Total Protein 7.1 Albumin 3.7 Globulin 3.4 Albumin/Globulin Ratio 1.1 Lipase 107 - Medical Decision Making Patient presented secondary to abdominal pain. IV was established laboratory studies were obtained. CBC CMP and lipase found to be unremarkable. CT abdomen pelvis with IV contrast was performed, per radiology this was found to be negative. Patient's vital signs were documented errantly, at one point it was documented he had a heart rate of 152 this was never the case, I did multiple repeat evaluations and the patient has had a normal pulse rate throughout his stay in the emergency department. He continues to have reproducible left upper quadrant pain with a negative work-up. He has follow-up with general surgery tomorrow, patient did request some pain relief he was given a dose of [place] in the emergency department to be sent home with a short course of analgesia. Patient was educated on signs and symptoms which to return. Patient was discharged in stable condition. ED Disposition - Plan for ED Patient: Disposition: Home or Assisted Living Diagnosis: Abdominal pain Instructions: ED Abdominal Pain Excl Appendx Male Prescriptions: Hydrocodone Bitart/Apap 5-325 [[place] 5MG-325MG] 1 tab PO Q6H PRN PRN 3 Days #12 tab PRN Reason: Pain Prescription Printed Referrals: Kierra Frost DO [STAFF PHYSICIAN] - Additional Instructions: Follow-up with general surgery tomorrow as previously scheduled
[2020-06-20 09:57] LABS: Absolute Lymphocyte Count 3.01 X10^3/uL (0.83-4.51); Absolute Neutrophil Count 2.9 X10^3/uL (2.0-7.7); Basophil# 0.03 X10^3/uL; Basophil% 0.4 % (0-1); Eosinophils% 7.1 % (0-5); Hematocrit 50.3 % (40-54); Hemoglobin 16.3 g/dL (13.0-16.5); Lymphocyte # 3.01 X10^3/ul (4.0); Lymphocyte % 42.9 % (19-41); Mean Corp Hgb Conc 32.4 g/dL (32-36); Mean Corpuscular Hgb 26.3 pg (27.0-32.0); Mean Corpuscular Volume 81.1 fL (80-94); Mean Platelet Vol. 10.1 fl (6.2-12.0); Monocyte# 0.59 X10^3/uL; Monocyte% 8.4 % (0-10); NRBC Flagged by Analyzer 0 % (0-5); Neutrophil # 2.87 X10^3/uL (2.7-7.7); Neutrophil % 41.1 % (47-70); Platelet Count 294 K/mm3 (150-450); RBC Distribution Width CV 13.5 % (11.6-14.6); RBC Distribution Width SD 39.8 fl (35.1-43.9)
[2020-06-20] MEDS: 0.9% Normal Saline 1,000 ML 125 ML IV (10:08)
[2020-06-20 10:29] LABS: ALB/GLOB Ratio 1.1 RATIO (0.9-2.4); AST(SGOT) 28 U/L (15-37); Alanine Aminotransfer ALT/SGPT 54 U/L (16-61); Albumin, Serum 3.7 g/dL (3.2-5.0); Alkaline Phosphatase 73 U/L (45-117); Anion Gap 5 (5-15); BUN 16 mg/dL (7-18); BUN/Creat Ratio 15.4 RATIO (10-20); Calcium,Total 9.2 mg/dL (8.5-10.1); Chloride 111 mmol/L (98-107); Creatinine, Serum 1.04 mg/dL (0.70-1.30); EST Glomerular Filtration Rate 90 mL/min (>60); Est Glom Filt Rate - Afr Amer 109 mL/min (>60); Estimated Creatinine Clearance 129.83 ml/min; Globulin 3.4 g/dL (2.2-4.2); Glucose 96 mg/dL (74-106); Lipase 107 U/L (73-393); Potassium 3.9 mmol/L (3.5-5.1); Protein, Total 7.1 g/dL (6.4-8.2); Sodium Level 141 mmol/L (136-145)
--- NOTE | 2020-06-20 10:35 | CT_ITS ---
STUDY: CT ABDOMEN AND PELVIS WITH CONTRAST REASON FOR EXAM: Male, 30 years old. LUQ PAIN STARTED THIS MORNING RADIATION DOSAGE (If Supplied By Facility): CTDIvol = ( 16.6 ) mGy, DLP = ( 1574.62 ) mGycm TECHNIQUE: Transaxial images were obtained from the dome of the diaphragm to the symphysis pubis without oral contrast. 100ML OF ISOVUE 370 was administered. Sagittal and coronal images were reconstructed. Individualized dose optimization techniques were used for this CT. COMPARISON: Comparison is made with prior study dated 05/02/2020. FINDINGS: The visualized lung bases are unremarkable. The visualized portions of the heart are within normal limits. There is decreased attenuation of the liver consistent with steatosis. Normal gallbladder and extrahepatic biliary system. Borderline splenomegaly. Normal pancreas. Normal bilateral adrenal glands. Normal right kidney. Normal left kidney. There is a small hiatal hernia. Normal small intestine. Normal colon. The appendix is visualized and appears normal. Normal abdominal aorta. Normal inferior vena cava. Normal retroperitoneum. Normal urinary bladder. Normal abdominal wall. Normal osseous structures. CT/Abdomen/Pelvis W IV Cont ONLY IMPRESSION: Diffuse fatty infiltration of the liver. Electronically Signed: William Samson, at 11:06 EST , Service support ,
[2020-06-20 10:48] VITALS: BP 110/37; PULSE 152; RESP 24; O2SAT 96
[2020-06-20 11:21] VITALS: BP 136/95; PULSE 79; RESP 14; O2SAT 98
[2020-06-20] MEDS: HYDROcodone Bitartrate/Apap 5/325 Tablet PO (11:28)
[2020-06-20 11:31] VITALS: PULSE 75; RESP 16; O2SAT 98
== END 2020-06-20 11:32 | disposition home or self-care (01) ==
PROVIDERS: Emergency Provider Emergency Medicine
DX: R10.12 Left upper quadrant pain (principal); Z86.010 Personal history of colon polyps; Z87.891 Personal history of nicotine dependence
CPT/HCPCS: 74177; 80053; 83690; 85025; 96360; 99284; J7030; Q9967; A4216

== ENCOUNTER → 2020-06-21 14:01 | Outpatient (CLI) | payer BC, SELFPAY ==
[2020-06-21 13:45] VITALS: BMI 37.1
[2020-06-23 16:09] LABS: Endomysial Antibody IgA Negative (Negative)
[2020-06-23 20:28] LABS: Immunoglobulin A 175 mg/dL (90-386); t-Transglutaminase IgA <2 U/mL (0-3)
[2020-06-25 04:07] LABS: Clam <0.10 kU/L (Class 0); Codfish <0.10 kU/L (Class 0); Corn <0.10 kU/L (Class 0); Egg, White <0.10 kU/L (Class 0); Milk (Cow) <0.10 kU/L (Class 0); Peanut <0.10 kU/L (Class 0); SCALLOP <0.10 kU/L (Class 0); Shrimp <0.10 kU/L (Class 0); Soybean <0.10 kU/L (Class 0); Walnut, (Food) <0.10 kU/L (Class 0); Wheat <0.10 kU/L (Class 0)
[2020-06-25 07:59] LABS: SESAME SEED <0.10 kU/L (Class 0)
== END ==
LOC: LAB 14:03
PROVIDERS: Referring Provider Surgery; Visit Provider Surgery
DX: R10.9 Unspecified abdominal pain (principal)
CPT/HCPCS: 36415; 82784; 83516; 86003; 86255

== ENCOUNTER 2021-05-23 12:37 | Emergency (ER) | payer BC, SELFPAY ==
[2021-05-23 12:38] VITALS: BP 158/108; PULSE 103; RESP 22; TEMP 35.9; O2SAT 96; BMI 37.7
[2021-05-23 14:30] VITALS: PULSE 90; RESP 18; O2SAT 98
[2021-05-23] MEDS: predniSONE 20 MG Tablet 60 MG PO (14:46)
[2021-05-23] MEDS: DiphenhydrAMINE 25 MG Capsule 50 MG PO (14:46)
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
[2021-05-23 16:42] VITALS: O2SAT 98
== END 2021-05-23 16:42 | disposition home or self-care (01) ==
PROVIDERS: Emergency Provider Emergency Medicine
DX: J45.901 Unspecified asthma with (acute) exacerbation (principal); T59.811A Toxic effect of smoke, accidental (unintentional), initial encounter; J70.5 Respiratory conditions due to smoke inhalation; Y92.9 Unspecified place or not applicable; Z87.891 Personal history of nicotine dependence
CPT/HCPCS: 99284

== ENCOUNTER 2022-03-19 03:40 | Emergency (ER) | payer BC, SELFPAY ==
[2022-03-19 03:40] VITALS: BP 157/104; PULSE 91; RESP 21; TEMP 36.4; O2SAT 98; BMI 38.3
--- NOTE | 2022-03-19 03:40 | EKG12_ITS ---
Test Reason : CP Blood Pressure : / mmHG Vent. Rate : 088 BPM Atrial Rate : 088 BPM P-R Int : 154 ms QRS Dur : 086 ms QT Int : 378 ms P-R-T Axes : 038 070 042 degrees QTc Int : 457 ms Normal sinus rhythm Normal ECG Confirmed by YOLANDA NAGEL MD ([id number]), restaurant expeditor AXEL ZULETA ([id number]) on 03/20/2022 9:08:48 AM Referred By: YESENIA Confirmed By:YOLANDA NAGEL MD
--- NOTE | 2022-03-19 03:56 | ED.VIS.CHEST ---
HPI History of Present Illness Chief Complaint: Chest Pain Informant: patient Narrative Narrative: Patient is a 32-year-old male with history of acid reflux/heartburn presenting from home for sudden onset of chest pain. Patient states he developed chest pain of the left side of his chest/sternum he 2 hours prior to arrival. It woke him up from sleep. He states the pain radiates to his back. At first it was quite painful with any type of breathing but now it is only worse when he takes a deep breath. He did have a coughing fit and subsequently threw up after this pain started. He currently denies any nausea or vomiting. Describes the pain as sharp in nature. Denies any recent upper respiratory symptoms, nasal congestion, sore throat, fever or chills. Denies any changes bowel habits. Did try taking Tums with no relief of his symptoms. Does not regularly follow with a physician. Denies any history of familial heart disease especially as a young age but notes that his mother was born with an extra heart valve. He does vape. Denies any significant alcohol use and denies any drug use. Denies any swelling of his legs. Denies any history of DVT or PE. [facility] Medical History Abdominal pain Asthma Chronic neck and back pain Diarrhea HISTORY OF POLYPS Knee pain Severe headache Home Medications NK 03/19/22 [History Last Taken Unknown] Allergy/AdvReac Type Severity Reaction Status Date / Time bee pollen [Bee Pollen] Allergy Intermediate EDEMA Verified 03/19/22 03:45 Family History Grandmother Diabetes Cancer Grandfather Diabetes Aunt Cancer Mother Diabetes Father Diabetes Sister Diabetes Surgical History History of tonsillectomy Social History Smoking Status: Former smoker alcohol intake: current alcohol intake frequency: a few times a month substance use type: does not use ROS ROS ED Constitutional Constitutional ED: Denies chills or fever(s) Eyes Eyes: Denies blurry vision or change in vision ENT ENT ED: Denies ear pain, rhinorrhea or sore throat Cardiovascular Cardiovascular: Reports as per HPI and chest pain; Denies palpitations or racing heartbeat Respiratory/Chest Respiratory/Chest: Reports cough; Denies dyspnea or dyspnea on exertion Gastrointestinal Gastrointestinal: Reports vomiting; Denies abdominal pain, constipation, diarrhea or nausea Genitourinary Genitourinary ED: Denies dysuria or hematuria Musculoskeletal Musculoskeletal: Reports back pain; Denies arthralgias or myalgias Integumentary Denies rash Neurologic Neurologic: Denies headache(s) or weakness Psychiatric Psychiatric: Denies anxiety or depression Hematologic/Lymphatic Hematologic/Lymphatic: Denies easy bleeding or easy bruising EXAM Physical Exam Const Vital Signs: 03/19/22 03:40 03/19/22 03:46 03/19/22 04:03 Temperature 97.5 F L Temperature Source Oral Pulse Rate 91 Respiratory Rate 21 H Respiratory Effort Non-Labored Blood Pressure 157/104 H Blood Pressure Mean 121 Pulse Ox 98 Oxygen Delivery Method Room Air Room Air 03/19/22 04:40 03/19/22 05:00 03/19/22 06:00 Temperature Temperature Source Pulse Rate 88 82 92 Respiratory Rate 24 H 20 H 26 H Respiratory Effort Blood Pressure 151/87 H 146/81 H 146/75 H Blood Pressure Mean 108 102 98 Pulse Ox 97 95 96 Oxygen Delivery Method Room Air Room Air Room Air 03/19/22 06:33 Temperature Temperature Source Pulse Rate 86 Respiratory Rate 19 H Respiratory Effort Blood Pressure 146/90 H Blood Pressure Mean 108 Pulse Ox 97 Oxygen Delivery Method Room Air Positive well nourished, well developed and obese General Appearance ED: well developed and NAD Nutritional Appearance: obese HEENT Reports moist mucous membranes normocephalic and atraumatic Eyes PERRL and EOMs intact bilaterally Neck supple and no JVD Chest Wall inspection of chest normal and palpation of chest normal Chest Narrative: No reproducible chest wall tenderness to palpation Resp normal respiratory effort and clear to auscultation bilaterally Effort and Inspection: Negative for respiratory distress Cardio regular rate, regular rhythm and no murmurs Peripheral Pulses: radial pulses present GI normal to inspection, nondistended, normoactive bowel sounds and soft to palpation Extremity normal to inspection General Extremety ED: Negative for edema General Extremity: Negative for edema Neuro oriented x3 Neuro Narrative: No focal deficits appreciated Motor Exam: Negative for general weakness Psych mental status grossly normal Mood & Affect: anxious Skin no rashes or lesions noted Heart Score History: Slightly/Non-Suspicious ECG: Normal Age: </= 45 years Risk Factors: 1 or 2 Risk Factors Troponin: </= Normal Limit Score: 1 MDM MDM MDM Narrative Medical decision making narrative: Patient evaluated for sudden onset of chest pain. Is pleuritic in nature. Patient is PE RC negative and I do not suspect a pulmonary emboli as a cause of his symptoms. EKG is normal. High since he troponin is normal x2 at 6 and 5 respectively. Patient's pain improved while in the ER. He is given a GI cocktail and is not sure if that causes pain to improve or just coincidence. CBC and CMP as well as lipase are normal. Chest x-ray 2 views interpreted by myself as well as radiology not show any acute process. Patient will be discharged home to follow-up with a primary care provider for further evaluation of his chest pain. Counseled that the exact cause of his symptoms is not clear today however there is no indication for hospitalization and I did not find any serious cause such as ACS, pulmonary emboli, pneumonia or pneumothorax. He verbalizes agreement understand this plan. Discharged home in stable condition. Lab Data Attestation: I reviewed the patient's lab results. Labs: Laboratory Results - last 24 hr 03/19/22 03/19/22 03/19/22 03:43 03:43 05:43 WBC 8.5 RBC 5.66 Hgb 15.1 Hct 45.8 MCV 80.9 MCH 26.7 L MCHC 33.0 RDW Std Deviation 40.9 RDW Coeff of Rashaun 13.9 Plt Count 295 MPV 10.5 Immature Gran % (Auto) 0.200 Neut % (Auto) 47.7 Lymph % (Auto) 38.1 [place] % (Auto) 9.1 Eos % (Auto) 4.7 Baso % (Auto) 0.2 Absolute Neuts (auto) 4.0 Absolute Lymphs (auto) 3.23 Nucleated RBC % 0 Sodium 140 Potassium 4.1 Chloride 108 H Carbon Dioxide 22.0 Anion Gap 10 BUN 16 Creatinine 0.87 Estim Creat Clear Calc 160.50 Est GFR (MDRD) Af Amer 132 Est GFR (MDRD) Non-Af 109 BUN/Creatinine Ratio 18.3 Glucose 137 H Calcium 9.0 Magnesium 1.8 Total Bilirubin 0.50 Direct Bilirubin 0.11 AST 25 ALT 51 Alkaline Phosphatase 74 Troponin I High Sens 6 5 Total Protein 7.0 Albumin 3.5 Globulin 3.5 Lipase 110 Radiography Diagnostic Testing: Clinical Impression(s) from Imaging Studies Chest X-Ray 03/19/22 04:08 IMPRESSION: No radiographic evidence of acute cardiopulmonary disease. Electronically Signed: Eagle Wilde MD at 4:27 EDT Reading Location ID and State: [facility] / [place] , Service support , Rhythm Strip Rhythm Strip: Sinus Rhythm Rate: 88 Ectopy: None EKG Initial EKG: Attestation: I personally reviewed and interpreted this EKG as follows: Interpretation: Sinus Rhythm Comments: Normal sinus rhythm at a rate of 88 Normal axis Normal intervals Normal ST segments Discharge Plan Triage Chief Complaint: Chest Pain ED Provider: Kristine Baker Dx/Rx/DC Orders Clinical Impression: Chest pain of uncertain etiology, Chest pain, pleuritic Instructions: ED Chest Pain, Uncertain Cause Prescriptions: No Action NK Primary Care Provider: Care Physician,No Primary Referrals: Lili Herron MD [Med Staff - Senior Software Manager] - As soon as possible Care Physician,No Primary [Primary Care Provider] - Activity Restrictions/Additional Instructions: The exact cause of your symptoms is not clear today however your work-up is largely normal. Please follow-up with your primary care doctor for further evaluation of your heart and lungs. Return to the emergency room you have any worsening symptoms or further concerns. Disposition Disposition: Home, Self Care
[2022-03-19] MEDS: Mag Hydrox/Al Hydrox/Simeth 30 ML UDC PO (04:01)
[2022-03-19 04:03] LABS: Absolute Lymphocyte Count 3.23 X10^3/uL (0.83-4.51); Basophil# 0.02 X10^3/uL; Basophil% 0.2 % (0-1); Eosinophils% 4.7 % (0-5); Hematocrit 45.8 % (40-54); Hemoglobin 15.1 g/dL (13.0-16.5); Lymphocyte # 3.23 X10^3/ul (0.83-4.51); Lymphocyte % 38.1 % (19-41); Mean Corpuscular Hgb 26.7 pg (27.0-32.0); Mean Corpuscular Volume 80.9 fL (80-94); Mean Platelet Vol. 10.5 fl (6.2-12.0); Monocyte# 0.77 X10^3/uL; Monocyte% 9.1 % (0-10); NRBC Flagged by Analyzer 0 % (0-5); Neutrophil # 4.04 X10^3/uL (2.7-7.7); Neutrophil % 47.7 % (47-70); Platelet Count 295 K/mm3 (150-450); RBC Distribution Width CV 13.9 % (11.6-14.6); RBC Distribution Width SD 40.9 fl (35.1-43.9); Red Blood Count 5.66 M/mm3 (4.6-6.2); White Blood Count 8.5 K/mm3 (4.4-11.0)
--- NOTE | 2022-03-19 04:08 | RAD_ITS ---
EXAM: XR CHEST, 2 VIEWS CLINICAL INDICATION: chest pain chest pain TECHNIQUE: Frontal and lateral views of the chest. This report was created using Clever report generation technology. COMPARISON: Chest x-ray 06/15/2020. FINDINGS: LUNGS AND PLEURAL SPACES: Unremarkable. No consolidation or edema. No pneumothorax. No effusion. HEART: Unremarkable. Cardiac silhouette not enlarged. MEDIASTINUM: Central airways and mediastinal contour are unremarkable. BONES/JOINTS: Unremarkable. SOFT TISSUES: Unremarkable. RAD/Chest PA and Lateral IMPRESSION: No radiographic evidence of acute cardiopulmonary disease. Electronically Signed: Eagle Wilde MD at 4:27 EDT Reading Location ID and State: [facility] / [place] , Service support ,
[2022-03-19 04:23] LABS: AST(SGOT) 25 U/L (15-37); Alanine Aminotransfer ALT/SGPT 51 U/L (16-61); Albumin, Serum 3.5 g/dL (3.2-5.0); Alkaline Phosphatase 74 U/L (45-117); Anion Gap 10 (5-15); BUN 16 mg/dL (7-18); BUN/Creat Ratio 18.3 RATIO (10-20); Bilirubin, Direct 0.11 mg/dL (0.00-0.30); Chloride 108 mmol/L (98-107); Creatinine, Serum 0.87 mg/dL (0.70-1.30); EST Glomerular Filtration Rate 109 mL/min (>60); Est Glom Filt Rate - Afr Amer 132 mL/min (>60); Globulin 3.5 g/dL (2.2-4.2); Glucose 137 mg/dL (74-106); Lipase 110 U/L (73-393); Magnesium 1.8 mg/dL (1.6-2.6); Potassium 4.1 mmol/L (3.5-5.1); Sodium Level 140 mmol/L (136-145); Troponin-I HS (w/2H Reflex) 6 pg/mL (3.0-78.0)
[2022-03-19 04:40] VITALS: BP 151/87; PULSE 88; RESP 24; O2SAT 97
[2022-03-19 05:00] VITALS: BP 146/81; PULSE 82; RESP 20; O2SAT 95
[2022-03-19 06:00] VITALS: BP 146/75; PULSE 92; RESP 26; O2SAT 96
[2022-03-19 06:00] LABS: Reflex Troponin-HS? (from REC) Y
[2022-03-19 06:23] LABS: Troponin-I HS 5 pg/mL (3.0-78.0)
[2022-03-19 06:33] VITALS: BP 146/90; PULSE 86; RESP 19; O2SAT 97
== END 2022-03-19 06:45 | disposition home or self-care (01) ==
PROVIDERS: Emergency Provider Emergency Medicine; Visit Provider Emergency Medicine
DX: R07.81 Pleurodynia (principal); F17.290 Nicotine dependence, other tobacco product, uncomplicated
CPT/HCPCS: 71046; 80048; 80076; 83690; 83735; 84484; 85025; 93005; 99285; A4216

== ENCOUNTER 2023-07-19 17:24 | Emergency (ER) | payer BC, SELFPAY ==
[2023-07-19 17:25] VITALS: BP 151/100; PULSE 104; RESP 18; TEMP 36.4; O2SAT 100; BMI 38.9
--- NOTE | 2023-07-19 17:46 | EDS_ITS ---
HPI <DB Solano - Last Filed: 07/19/23 20:21> History of Present Illness Chief Complaint: Chest Other Narrative Narrative: 33-year-old male with past medical history of acid reflux/heartburn presents for 3 days of continuous left-sided chest pain that radiates down the arm. His arm feels like it is sore but he has not been exercising. The arm pain seems worse after eating. He has had similar pain in the past with eating that usually resolved within a few hours. He went to urgent care who sent him here for evaluation. He denies personal cardiac history. He does not smoke. No risk factors for DVT/PE. He does not have a fever, cough, shortness of breath, nausea or vomiting, or abdominal pain. He is on omeprazole daily. He notes his mom had a congenital heart defect. PFSH <DB Solano - Last Filed: 07/19/23 20:21> [facility] Medical History Abdominal pain Asthma Chronic neck and back pain Diarrhea HISTORY OF POLYPS Knee pain Severe headache Home Medications famotidine 20 mg tablet (Pepcid) 20 mg PO BID 14 days #28 tabs 07/19/23 [Rx Last Taken Unknown] Allergy/AdvReac Type Severity Reaction Status Date / Time bee pollen [Bee Pollen] Allergy Intermediate EDEMA Verified 07/19/23 17:25 Family History Grandmother Diabetes Cancer Grandfather Diabetes Aunt Cancer Mother Diabetes Father Diabetes Sister Diabetes Surgical History History of tonsillectomy Social History Smoking Status: Former smoker alcohol intake: current alcohol intake frequency: a few times a month substance use type: does not use ROS <DB Solano - Last Filed: 07/19/23 20:21> ROS ED ROS Narrative Constitutional: Negative for fever, chills, malaise. CVS: Positive for chest pain. Negative for palpitations, syncope. Respiratory: Negative for shortness of breath, cough, orthopnea. GI: Negative for abdominal pain, nausea, vomiting. EXAM <DB Solano - Last Filed: 07/19/23 20:21> Physical Exam Narrative Exam Narrative: CONST: Patient sitting in no acute distress. EYES: Normal inspection. NECK: Normal inspection. RESP: No respiratory distress, CTAB. CVS: Regular rate and rhythm, no murmur, no gallop. ABD: Soft and nontender, no guarding or rebound, nondistended. SKIN: Color normal, no rash, warm, dry, intact. EXTREMITIES: Normal appearance, no pedal edema. 2+ radial and PT pulses. NEURO: Oriented x4. PSYCH: Normal affect. Const Vital Signs: 07/19/23 17:25 07/19/23 20:16 Temperature 97.5 F L Temperature Source Temporal Pulse Rate 104 H 90 Respiratory Rate 18 16 Blood Pressure 151/100 H Blood Pressure Mean 117 Pulse Ox 100 Oxygen Delivery Method Room Air <Dr. Toby Pedersen, - Last Filed: 07/19/23 21:44> Physical Exam Const Vital Signs: 07/19/23 17:25 07/19/23 20:16 Temperature 97.5 F L Temperature Source Temporal Pulse Rate 104 H 90 Respiratory Rate 18 16 Blood Pressure 151/100 H Blood Pressure Mean 117 Pulse Ox 100 Oxygen Delivery Method Room Air MDM <DB Solano - Last Filed: 07/19/23 20:21> [facility] MDM Narrative Medical decision making narrative: History gathered from: Patient and spouse Patient has left-sided chest pain with left arm soreness has been constant over the last 3 days but worsens with eating. It is not exertional or pleuritic. He appears well and nontoxic. BP is 151/100, HR 104, otherwise normal vital signs. He is in no distress and has a normal cardiopulmonary exam. Upper extremity pulses are symmetric. He has no chest wall or abdominal tenderness. No signs of DVT. EKG is normal sinus rhythm with no ischemic changes. CBC, BMP, D-dimer and troponin are all normal. With 3 days of constant pain he does not require serial cardiac enzymes. After Pepcid and GI cocktail he had some improvement. Since pain is worse postprandial this may be related to GERD. He is on a PPI and I prescribed omeprazole twice daily in addition of this and recommended he follow-up with primary care. Return precautions discussed. He was discharged in stable condition. Differential: ACS, PE, GERD among others Lab Data Attestation: I reviewed the patient's lab results. Labs: Laboratory Results - last 24 hr 07/19/23 18:40 WBC 7.4 RBC 6.17 Hgb 15.8 Hct 48.2 MCV 78.1 L MCH 25.6 L MCHC 32.8 RDW Std Deviation 41.0 RDW Coeff of Rashaun 14.9 H Plt Count 312 MPV 10.1 Immature Gran % (Auto) 0.100 Neut % (Auto) 47.0 Lymph % (Auto) 36.0 [place] % (Auto) 13.4 H Eos % (Auto) 3.1 Baso % (Auto) 0.4 Absolute Neuts (auto) 3.5 Absolute Lymphs (auto) 2.67 Nucleated RBC % 0 D-Dimer Quant (PE/DVT) < 0.27 L Sodium 139 Potassium 4.1 Chloride 108 H Carbon Dioxide 26.0 Anion Gap 5 BUN 18 Creatinine 1.05 Estim Creat Clear Calc 167.23 Est GFR (MDRD) Af Amer 106 Est GFR (MDRD) Non-Af 87 BUN/Creatinine Ratio 17.1 Glucose 102 Calcium 9.3 Troponin I High Sens 4 Radiography Diagnostic Testing: Clinical Impression(s) from Imaging Studies Chest X-Ray 07/19/23 19:12 IMPRESSION: 1. No radiographic evidence of acute cardiopulmonary disease. Electronically Signed: Gilberto Littlejohn DO at 20:05 EST , ED attending interpretation of 2-view chest x-ray shows normal heart size, no acute infiltrate, edema, or effusion. EKG Initial EKG: Attestation: I personally reviewed and interpreted this EKG as follows: Interpretation: Sinus Rhythm and No Acute Injury Pattern Comments: Normal sinus rhythm at 99 bpm Normal intervals, no acute ischemic changes <Dr. Toby Pedersen DO - Last Filed: 07/19/23 21:44> [facility] Lab Data Labs: Laboratory Results - last 24 hr 07/19/23 18:40 WBC 7.4 RBC 6.17 Hgb 15.8 Hct 48.2 MCV 78.1 L MCH 25.6 L MCHC 32.8 RDW Std Deviation 41.0 RDW Coeff of Rashaun 14.9 H Plt Count 312 MPV 10.1 Immature Gran % (Auto) 0.100 Neut % (Auto) 47.0 Lymph % (Auto) 36.0 [place] % (Auto) 13.4 H Eos % (Auto) 3.1 Baso % (Auto) 0.4 Absolute Neuts (auto) 3.5 Absolute Lymphs (auto) 2.67 Nucleated RBC % 0 D-Dimer Quant (PE/DVT) < 0.27 L Sodium 139 Potassium 4.1 Chloride 108 H Carbon Dioxide 26.0 Anion Gap 5 BUN 18 Creatinine 1.05 Estim Creat Clear Calc 167.23 Est GFR (MDRD) Af Amer 106 Est GFR (MDRD) Non-Af 87 BUN/Creatinine Ratio 17.1 Glucose 102 Calcium 9.3 Troponin I High Sens 4 Radiography Diagnostic Testing: Clinical Impression(s) from Imaging Studies Chest X-Ray 07/19/23 19:12 IMPRESSION: 1. No radiographic evidence of acute cardiopulmonary disease. Electronically Signed: Gilberto Littlejohn DO at 20:05 EST , Treatment and Re-Evaluation :: I have personally performed a face to face assessment of the patient and have reviewed the EVGENY Note. I performed a substantive portion of the visit including all aspects of the following. My dupont findings include: History: Patient presents with chest pain, left arm pain, and back pain that has been getting worse over the past 3 days. Patient states it came on rather suddenly. Patient states he has been constant for the past 3 days. Patient describes it as burning. Patient states it is worse with eating and drinking. Patient states the pain is mainly in his left arm but radiates into his chest and back. Patient states nothing makes it better. Patient denies any fevers or chills. Patient denies any shortness of breath. Exam: Vital signs are stable. Patient is afebrile. Patient is in no acute distress. Oral mucosa is pink and moist. Neck is supple. Trachea is midline. There is no JVD. Heart was regular rate and rhythm. Lungs are clear and equal bilaterally. Abdomen is soft. Bowel sounds are normal. There is no tenderness. Cranial nerves II through XII are intact. There are no focal motor or sensory deficits noted. Musculoskeletal exam reveals some mild tenderness to palpation over the medial aspect of the left upper arm. There is no edema or ecchymosis. There is good range of motion. Medical Decision Making: Differential diagnosis includes cardiac dysrhythmia, cardiac ischemia, pulmonary embolism, pneumonia, pneumothorax, gastroesophageal reflux disease, musculoskeletal pain, and anxiety. EKG will be obtained to assess for cardiac dysrhythmia and cardiac ischemia. Chest x-ray will be obtained to assess for pneumonia and pneumothorax. CBC will be obtained to assess for leukocytosis and anemia. Basic metabolic profile will be obtained to assess for electrolyte abnormality and renal function. D-dimer will be obtained to assess for pulmonary embolism. High-sensitivity troponin will be obtained to assess for cardiac ischemia. EKG was obtained. On my independent interpretation, it shows normal sinus rhythm with a rate of 99. CA interval is normal, QRS interval was normal, and QTc interval was normal. [place] was normal at 66. There are no acute ST or T wave changes noted. CBC was reviewed and was within normal limits. PA and lateral chest x-ray was obtained. There are 2 views. On my independent interpretation, lung ellis are clear. There is normal cardiac silhouette. Bony thorax is normal. There is no acute process noted. Radiologist also interpreted the x-ray and agrees. CBC was reviewed and was within normal limits. Basic metabolic profile was reviewed and was within normal limits. High-sensitivity troponin was reviewed and was normal at 4. D-dimer was reviewed and was normal at less than 0.27. Patient was advised of his findings. Patient was instructed to follow-up with his primary care physician in 5 to 7 days. Patient understood and was agreeable with the plan. All questions were answered. Discharge Plan Triage Chief Complaint: Chest Other ED Midlevel Provider: Yaquelin Allen ED Provider: Toby Pedersen Dx/Rx/DC Orders Clinical Impression: Atypical chest pain, Chronic gastroesophageal reflux disease Instructions: ED GERD (Adult), Chest Pain O Prescriptions: New famotidine [Pepcid] 20 mg tablet 20 mg PO BID 14 Days Qty: 28 0RF Primary Care Provider: Care Physician,No Primary Referrals: Fast,Renetta, DO [Med Staff - Artificial Marble Worker] - Care Physician,No Primary [Primary Care Provider] - Activity Restrictions/Additional Instructions: Today your tests look normal. This may be related to acid reflux or GERD so I prescribed Pepcid. You can continue omeprazole you have at home and follow-up with a primary care doctor. Disposition Disposition: Home, Self Care Discharge Date/Time: 07/19/23 20:24
[2023-07-19] MEDS: Aspirin 81 MG TAB.CHEW 324 MG PO (18:29)
[2023-07-19] MEDS: Famotidine 20 MG Tablet PO (18:30)
[2023-07-19 18:47] LABS: Absolute Lymphocyte Count 2.67 X10^3/uL (0.83-4.51); Absolute Neutrophil Count 3.5 X10^3/uL (2.0-7.7); Basophil# 0.03 X10^3/uL; Basophil% 0.4 % (0-1); Eosinophil# 0.23 X10^3/uL; Eosinophils% 3.1 % (0-5); Hematocrit 48.2 % (40-54); Hemoglobin 15.8 g/dL (13.0-16.5); Lymphocyte # 2.67 X10^3/ul (0.83-4.51); Mean Corp Hgb Conc 32.8 g/dL (32-36); Mean Corpuscular Hgb 25.6 pg (27.0-32.0); Mean Corpuscular Volume 78.1 fL (80-94); Mean Platelet Vol. 10.1 fl (6.2-12.0); Monocyte# 0.99 X10^3/uL; Monocyte% 13.4 % (0-10); NRBC Flagged by Analyzer 0 % (0-5); Neutrophil # 3.48 X10^3/uL (2.7-7.7); Platelet Count 312 K/mm3 (150-450); RBC Distribution Width CV 14.9 % (11.6-14.6); Red Blood Count 6.17 M/mm3 (4.6-6.2); White Blood Count 7.4 K/mm3 (4.4-11.0)
[2023-07-19 19:05] LABS: D-Dimer Quantitative (DVT/PE) < 0.27 FEU/ug/m (0.27-0.49)
[2023-07-19 19:11] LABS: Anion Gap 5 (5-15); BUN 18 mg/dL (7-18); BUN/Creat Ratio 17.1 RATIO (10-20); Calcium,Total 9.3 mg/dL (8.5-10.1); Chloride 108 mmol/L (98-107); Creatinine, Serum 1.05 mg/dL (0.70-1.30); EST Glomerular Filtration Rate 87 mL/min (>60); Est Glom Filt Rate - Afr Amer 106 mL/min (>60); Estimated Creatinine Clearance 167.23 ml/min; Glucose 102 mg/dL (74-106); Potassium 4.1 mmol/L (3.5-5.1); Sodium Level 139 mmol/L (136-145); Troponin-I HS (w/2H Reflex) 4 pg/mL (3.0-78.0)
--- NOTE | 2023-07-19 19:12 | RAD_ITS ---
INDICATION: chest pain EXAMINATION/TECHNIQUE: X-RAY - XR Chest 2 Views COMPARISON: March 19, 2022 chest x-ray FINDINGS: LINES/DEVICES: None. Overlying extraneous heart monitoring wires. LUNGS: Symmetric normal lung volumes. No airspace opacity or abnormal interstitial pattern. No nodule or mass. No pleural effusion or pneumothorax. MEDIASTINUM AND CARDIOVASCULAR STRUCTURES: Normal size and contour of the cardiomediastinal silhouette. No evidence of pulmonary vascular congestion. BONES AND SOFT TISSUES: No fracture or focal osseous lesion. RAD/Chest PA and Lateral IMPRESSION: 1. No radiographic evidence of acute cardiopulmonary disease. Electronically Signed: Gilberto Littlejohn DO at 20:05 EST ,
[2023-07-19 20:16] VITALS: PULSE 90; RESP 16
[2023-07-19] MEDS: Mag Hydrox/Al Hydrox/Simeth 30 ML UDC PO (20:21)
[2023-07-19 20:43] LABS: Reflex Troponin-HS? (from REC) Y
== END 2023-07-19 20:24 | disposition home or self-care (01) ==
PROVIDERS: Physician Assistant; Emergency Provider Emergency Medicine; Visit Provider Emergency Medicine
DX: R07.89 Other chest pain (principal); K21.9 Gastro-esophageal reflux disease without esophagitis; Z79.899 Other long term (current) drug therapy; Z87.891 Personal history of nicotine dependence
CPT/HCPCS: 71046; 80048; 84484; 85025; 85379; 93005; 99284

== ENCOUNTER → 2023-12-23 | Outpatient (CLI) | payer BC, SELFPAY | END | disposition home or self-care (01) | LOC: BFHLAB 16:15 → LABSPEC 16:16 | PROVIDERS: PCP Nurse Practitioner Family; Referring Provider Nurse Practitioner Family; Visit Provider Nurse Practitioner Family | DX: N39.0 Urinary tract infection, site not specified (principal) | CPT/HCPCS: 87086 ==

== ENCOUNTER → 2024-01-10 | Outpatient (CLI) | payer BC, SELFPAY ==
--- NOTE | 2024-01-10 15:55 | RAD_ITS ---
STUDY: X-RAY CHEST REASON FOR EXAM: Male, 33 years old. COUGH TECHNIQUE: Frontal and lateral views of the chest. COMPARISON: 07/19/2023. FINDINGS: The lungs are clear and expanded. There is no demonstrated pleural abnormality. Normal size heart. Normal mediastinum and norma. Normal visualized pulmonary arteries. Normal visualized aortic arch and descending thoracic aorta. Normal visualized thoracic spine. Normal visualized ribs, clavicles, and shoulders. There is no demonstrated abnormality of the visualized soft tissue structures of the upper abdomen. RAD/Chest PA and Lateral IMPRESSION: Normal x-ray examination of the chest. Electronically Signed: Hector Garcia MD at 19:01 EDT ,
== END | disposition home or self-care (01) ==
LOC: MTRAD 15:53
PROVIDERS: PCP Nurse Practitioner Family; Referring Provider Nurse Practitioner Family; Visit Provider Nurse Practitioner Family
DX: R05.9 Cough, unspecified (principal); R06.02 Shortness of breath
CPT/HCPCS: 71046

== ENCOUNTER 2024-02-11 10:24 | Emergency (ER) | payer BC, SELFPAY ==
[2024-02-11 10:24] VITALS: BP 144/94; PULSE 71; RESP 19; TEMP 35.7; O2SAT 100; BMI 33.7
--- NOTE | 2024-02-11 11:23 | EDS_ITS ---
HPI History of Present Illness Chief Complaint: Male Pain/Injury Detail of Chief Complaint: Penile pain Informant: patient Narrative Narrative: Patient presents to the emergency department with complaint of pain in the tip of his penis that has had for about 3 days now. Patient had a similar episode in December for which she went to primary care physician and had a urinalysis that was unremarkable. He was referred to urology but by the time he called him a month later he was pain-free and did not follow-up. Patient now having discomfort again for 3 days. Constantly feels like he is urinating when he is not in actuality. He is and monogamous. Has had no penile discharge. He denies any trauma. He denies inserting any foreign bodies into urethra. He has not had any hematuria. [facility] Medical History Abdominal pain Asthma Chronic neck and back pain Diarrhea HISTORY OF POLYPS Knee pain Severe headache Home Medications ?Medication ?Instructions ?Recorded ?Last Taken ?Type famotidine 20 mg tablet (Pepcid) 20 mg PO BID 14 days #28 tabs 07/19/23 Unknown Rx omeprazole 20 mg capsule,delayed 20 mg PO DAILY 02/11/24 Unknown History release Allergy/AdvReac Type Severity Reaction Status Date / Time bee pollen (Bee Pollen) Allergy Intermediate EDEMA Verified 07/19/23 17:25 Family History Grandmother Diabetes Cancer Grandfather Diabetes Aunt Cancer Mother Diabetes Father Diabetes Sister Diabetes Surgical History History of tonsillectomy Social History Smoking Status: Former smoker alcohol intake: current alcohol intake frequency: a few times a month substance use type: does not use ROS ROS ED Review of Systems ROS Unobtainable: other Constitutional Constitutional ED: Reports lethargy; Denies chills, fever(s), sweats or weight loss Eyes Eyes: Denies blurry vision, change in vision or diplopia ENT ENT ED: Denies rhinorrhea or sore throat Cardiovascular Cardiovascular: Denies chest pain, orthopnea or racing heartbeat Respiratory/Chest Respiratory/Chest: Denies cough, dyspnea, dyspnea on exertion, orthopnea or sputum Gastrointestinal Gastrointestinal: Denies abdominal pain, diarrhea, nausea or vomiting Genitourinary Genitourinary ED: Reports other Details: Penile pain ; Denies dysuria, hematuria or urinary frequency Musculoskeletal Musculoskeletal: Denies arthralgias, back pain, myalgias or neck pain Integumentary Denies abscess, Abrasions or rash Neurologic Neurologic: Denies headache(s) or weakness Psychiatric Psychiatric: Denies anxiety, depression or suicidal thoughts Endocrine Endocrinology: Denies polydipsia, polyphagia or polyuria Hematologic/Lymphatic Hematologic/Lymphatic: Denies easy bleeding, easy bruising or lymphadenopathy Allergic/Immunologic Allergic/Immunologic ED: Denies mouth swelling, tongue swelling or urticaria EXAM Physical Exam Const Vital Signs: 02/11/24 10:24 Temperature 96.2 F L Temperature Source Temporal Pulse Rate 71 Respiratory Rate 19 H Blood Pressure 144/94 H Blood Pressure Mean 110 Pulse Ox 100 Oxygen Delivery Method Room Air Positive well nourished and well developed General Appearance ED: well developed and NAD HEENT Reports TM's clear and moist mucous membranes normocephalic and atraumatic; Negative for trauma or tenderness Tympanic Membrane ED: Yes TM's clear Eyes PERRL and EOMs intact bilaterally General Eye ED: Negative for pale conjunctiva or scleral icterus Neck no lymphadenopathy, supple and no JVD General: Negative for tenderness Chest Wall inspection of chest normal and palpation of chest normal Chest: Negative for tenderness Resp normal respiratory effort and clear to auscultation bilaterally Effort and Inspection: Negative for respiratory distress or pain with movement Auscultation: Negative for rhonchi, wheezes or diminished lung sounds Cardio regular rate, regular rhythm, S1 normal heart sound, S2 normal heart sound and no murmurs Peripheral Pulses: pulses 2+ throughout GI normal to inspection, nondistended, normoactive bowel sounds, soft to palpation, non-tender, non-distended and no masses Narrative: Evaluation of the penis reveals a circumcised male with no evidence of trauma. There is no drainage from the urethral meatus. No abnormality noted to the penis or the urethral meatus. He has no tenderness over the testicles. No masses palpated. No erythema or cellulitic changes. No rashes. Back/Spine no CVA tenderness and no thoracic nor lumbar tenderness Extremity normal to inspection General Extremety ED: Negative for edema General Extremity: Negative for edema Neuro oriented x3, CN's II-XII intact bilaterally, no sensory deficits noted and gait normal Sensorium / Orientation: awake, alert, oriented to person, oriented to place and oriented to time Motor Exam: strength 5/5 throughout and strength abnormal Psych mental status grossly normal Skin no rashes or lesions noted and no wounds MDM MDM MDM Narrative Medical decision making narrative: Patient presents with pain in his penis x 3 days. Describes pain at the urethral meatus opening. Patient has no abnormality noted on exam. I did obtain a urinalysis that was normal. BMP showed normal kidney function with BUN of 14 and creatinine 0.94. I did send off gonorrhea and Chlamydia testing however suspicion for this is low given the patient monogamous and not having any discharge or other symptoms. At this point etiology of his pain is unclear. He does not want thing for pain for home. Will refer to urology for follow-up. Lab Data Attestation: I reviewed the patient's lab results. Labs: Laboratory Results - last 24 hr 02/11/24 11:37 Sodium 139 Potassium 3.7 Chloride 109 H Carbon Dioxide 22.0 Anion Gap 8 BUN 14 Creatinine 0.94 Estim Creat Clear Calc 172.23 Est GFR (MDRD) Af Amer 119 Est GFR (MDRD) Non-Af 98 BUN/Creatinine Ratio 14.8 Glucose 120 H Calcium 9.2 Urine Color Yellow Urine Clarity Clear Urine pH 7.0 Ur Specific [place] 1.010 Urine Protein Negative Urine Glucose (UA) Normal Urine Ketones Negative Urine Occult Blood Negative Urine Nitrite Negative Urine Bilirubin Negative Urine Urobilinogen Normal Ur Leukocyte Esterase Negative Urine RBC 0 SEEN Urine WBC 0 SEEN Ur Squamous Epith Cells 0 SEEN Urine Bacteria 0 SEEN Urine Mucus 0 SEEN Discharge Plan Triage Chief Complaint: Male Pain/Injury ED Provider: Kg [place] Dx/Rx/DC Orders Clinical Impression: Pain in penis Instructions: ED Pain, Acute, Uncertain Cause Prescriptions: No Action famotidine [Pepcid] 20 mg tablet 20 mg PO BID 14 Days Qty: 28 0RF omeprazole 20 mg capsule,delayed release(DR/EC) 20 mg PO DAILY Primary Care Provider: Delmis Dang Referrals: Feliz Fabian MD [Med Staff - Active Staff] - 3-5 Days Delmis Dang NP-C [Primary Care Provider] - Print Language: Kyrgyz Disposition Disposition: Home, Self Care
[2024-02-11 11:44] LABS: Bacteria 0 SEEN /hpf (None Seen); Mucous, Urine 0 SEEN /hpf (<or=2+); Red Blood Cells-Urine 0 SEEN /hpf (0-5); Squamous Epithelial Cells - UA 0 SEEN /hpf (0-5); White Blood Cells 0 SEEN /hpf (0-5)
[2024-02-11 11:46] LABS: Color, Urine Yellow (Yellow); Glucose, Dipstick Normal (Normal); Ketone-Dipstick Negative (Negative); Leukocyte Esterase-Dipstick Negative /ul (Negative); Nitrite-Dipstick Negative (Negative); Occult Blood-Urine Negative /ul (Negative); Protein-Dipstick Negative (Negative); Urine Bilirubin Dipstick Negative (Negative); Urine Clarity Clear (Clear); Urine Urobilinogen Normal (Normal)
[2024-02-11 12:00] LABS: Anion Gap 8 (5-15); BUN 14 mg/dL (7-18); BUN/Creat Ratio 14.8 RATIO (10-20); Calcium,Total 9.2 mg/dL (8.5-10.1); Chloride 109 mmol/L (98-107); Creatinine, Serum 0.94 mg/dL (0.70-1.30); EST Glomerular Filtration Rate 98 mL/min (>60); Est Glom Filt Rate - Afr Amer 119 mL/min (>60); Estimated Creatinine Clearance 172.23 ml/min; Glucose 120 mg/dL (74-106); Potassium 3.7 mmol/L (3.5-5.1); Sodium Level 139 mmol/L (136-145)
[2024-02-11 12:24] VITALS: BP 128/89
== END 2024-02-11 12:36 | disposition home or self-care (01) ==
PROVIDERS: Emergency Provider Emergency Medicine; PCP Nurse Practitioner Family; Visit Provider Emergency Medicine
DX: N48.89 Other specified disorders of penis (principal); Z87.891 Personal history of nicotine dependence; Z79.899 Other long term (current) drug therapy
CPT/HCPCS: 80048; 81001; 87491; 87591; 99282; A4216

== ENCOUNTER → 2024-03-13 | Outpatient (CLI) | payer BC, SELFPAY ==
--- NOTE | 2024-03-13 16:49 | CT_ITS ---
EXAM: CT ABDOMEN AND PELVIS WITHOUT INTRAVENOUS CONTRAST CLINICAL INDICATION: Urinary frequency. TECHNIQUE: Helically acquired images were obtained of the abdomen and pelvis without intravenous contrast. This CT exam was performed using one or more of the following dose reduction techniques: automated exposure control, adjustment of the mA and/or kV according to patient size, and/or use of iterative reconstruction technique. RADIATION DOSE: CTDIvol = 17.77 mGy, DLP = 1043.19 mGy-cm COMPARISON: CT abdomen and pelvis without contrast 07/01/2014. FINDINGS: LOWER THORAX: Unremarkable. Lung bases are clear. No cardiomegaly. No significant pericardial effusion. ABDOMEN: LIVER: Mild diffuse fatty infiltration of the liver. Mild hepatomegaly measuring 23 cm long. GALLBLADDER AND BILE DUCTS: Unremarkable. No calcified gallstones. No gallbladder distention or wall edema. No intra- or extrahepatic biliary ductal dilation. PANCREAS: Unremarkable. No focal cystic mass. SPLEEN: Unremarkable. Normal size without focal cystic or solid mass. ADRENALS: Unremarkable. No nodules. KIDNEYS AND URETERS: Unremarkable. Normal renal size and position. No hydronephrosis. STOMACH AND BOWEL: Unremarkable. No stomach or bowel distention. No focal inflammatory change. PELVIS: APPENDIX: Normal. BLADDER: Unremarkable. No suspicious abnormality of the underdistended urinary bladder. REPRODUCTIVE: Unremarkable as visualized. No mass. ABDOMEN and PELVIS: INTRAPERITONEAL SPACE: Unremarkable. No ascites or other fluid collection. No free air. BONES/JOINTS: Unremarkable. No suspicious lytic or blastic abnormality. SOFT TISSUES: Unremarkable. No discrete abdominal or pelvic wall hernia. VASCULATURE: Unremarkable. Abdominal aorta is non-dilated. LYMPH NODES: Unremarkable. No enlarged lymph nodes. CT/Abdomen/Pelvis without Cont IMPRESSION: 1. Mild hepatic steatosis, previously moderate hepatic steatosis. Mild hepatomegaly is unchanged.. 2. No acute abnormality in the abdomen and pelvis. 3. No significant interval change when compared to 07/01/2014. Electronically Signed: Arturo Davis MD at 16:05 EDT ,
== END | disposition home or self-care (01) ==
LOC: CT 16:46
PROVIDERS: PCP Nurse Practitioner Family; Referring Provider Urology; Visit Provider Urology
DX: R30.9 Painful micturition, unspecified (principal)
CPT/HCPCS: 74176